=== PATIENT | male | born 1950 | race Caucasian/White ===

== ENCOUNTER 2018-01-07 17:20 | Emergency (ER) | payer MEDICARE, MEDICAID, SELFPAY ==
[2018-01-07 17:31] VITALS: BP 137/82; PULSE 70; RESP 17; TEMP 36.7; O2SAT 95; BMI 22.7
--- NOTE | 2018-01-07 18:39 | ED_ITS ---
HPI - URI/Sore Throat <JOHANN De Santiago - Last Filed: 01/07/18 21:53> General Chief Complaint: Upper Respiratory Symptoms Stated Complaint: SINUS PROBLEMS Time Seen by Provider: 01/07/18 18:18 Source: patient Mode of arrival: ambulatory Limitations: no limitations History of Present Illness HPI Narrative: 67-year-old male here for complaint of having nasal congestion over the last several days. He also reports having some discomfort to the maxillofacial area area he denies having any fevers or chills. He states he has a history of having sinus infections and feels like he is having similar symptoms at this time. He states that his sinus drainage has been thick and purulent. Positive p.o. intake. He denies any other concerns or complaints at this time. MD Complaint: sinus pain Related Data Previous Rx's Medication Instructions Recorded aspirin 81 mg PO QDAY 30 Days #0 10/18/16 doxycycline hyclate 100 mg PO BID #14 tab 01/07/18 Allergies Allergy/AdvReac Type Severity Reaction Status Date / Time No Known Drug Allergies Allergy Verified 01/07/18 17:31 Review of Systems <JOHANN De Santiago - Last Filed: 01/07/18 21:53> Constitutional Denies chills, Denies fever(s), Denies lethargy and Denies weakness Eyes Denies change in vision, Denies eye discharge, Denies irritation and Denies loss of vision ENT Ears, Nose, Mouth, and Throat: Reports sinus pain Cardiovascular Denies chest pain, Denies irregular heart rhythm, Denies lightheadedness, Denies palpitations, Denies dyspnea, Denies dyspnea on exertion and Denies orthopnea Respiratory Denies cough, Denies dyspnea, Denies dyspnea on exertion and Denies wheezing Gastrointestinal Gastrointestinal: Denies abdominal pain, Denies change in bowel habits, Denies diarrhea, Denies nausea and Denies vomiting Genitourinary Denies hematuria, Denies flank pain, Denies urinary incontinence and Denies urinary urgency Musculoskeletal Denies back pain, Denies muscle weakness, Denies numbness and Denies tingling Integumentary/Breasts Denies pruritus, Denies erythema, Denies rash and Denies wounds Neurologic Denies confusion, Denies loss of vision, Denies numbness, Denies tingling and Denies weakness Psychiatric Denies anxiety, Denies confusion, Denies depression, Denies homicidal ideation and Denies suicidal ideation Endocrine Denies palpitations Hematologic/Lymphatic Denies easy bruising Allergic/Immunologic Denies wheezing Exam <JOHANN De Santiago - Last Filed: 01/07/18 21:53> Initial Vital Signs Initial Vital Signs: Vital Signs Temperature 98.0 F 01/07/18 17:31 Pulse Rate 70 01/07/18 17:31 Respiratory Rate 17 01/07/18 17:31 Blood Pressure 137/82 H 01/07/18 17:31 Pulse Oximetry 95 01/07/18 17:31 Const General: cooperative and well developed Nutritional Appearance: well nourished Orientation: alert, awake, oriented x3 and not confused HENMT Head: normal to inspection and normocephalic Nose: external nose normal and nares normal Face and sinus: face symmetric and sinus tenderness Mouth: oral mucosae normal, oropharynx normal and moist mucous membranes Resp Effort & Inspection: normal respiratory effort, able to speak in complete sentences, no respiratory distress and no use of accessory muscles Auscultation: clear to auscultation bilaterally, no rales, no rhonchi and no wheezes Cardio Rate: regular rate Rhythm: regular rhythm Heart Sounds: no click, no gallops, no murmurs and no rubs Pulses: normal peripheral pulses Skin General: no rashes or lesions noted, No jaundice and No petechiae Neuro General: alert, oriented x3, gait normal and no focal motor deficits Speech: speech normal <Dionte Sloan DO - Last Filed: 01/07/18 22:16> Initial Vital Signs Initial Vital Signs: Vital Signs Temperature 98.0 F 01/07/18 17:31 Pulse Rate 70 01/07/18 17:31 Respiratory Rate 17 01/07/18 17:31 Blood Pressure 137/82 H 18 17:31 Pulse Oximetry 95 01/07/18 17:31 Course <JOHANN De Santiago - Last Filed: 01/07/18 21:53> Vital Signs - 8 hr 01/07/18 17:31 01/07/18 19:01 Temperature 98.0 F Pulse Rate 70 64 Respiratory Rate 17 Blood Pressure 137/82 H 111/63 Pulse Oximetry 95 95 <Dionte Sloan DO - Last Filed: 08/15/18 22:16> Vital Signs - 8 hr 01/07/18 17:31 01/07/18 19:01 Temperature 98.0 F Pulse Rate 70 64 Respiratory Rate 17 Blood Pressure 137/82 H 111/63 Pulse Oximetry 95 95 MDM - URI/Sore Throat <JOHANN De Santiago - Last Filed: 01/07/18 21:53> MDM Narrative Medical decision making narrative: Due to history of sinusitis and recurrence of similar symptoms he is prescribed doxycycline. [id number] Tylenol or Motrin as needed for any discomfort. Follow up with primary care provider. Plenty of fluids. Return emergency room for any worsening symptoms. Discharge Plan Departure Patient Disposition: Home, Self-Care Clinical Impression: Sinusitis Discharge Date/Time: 01/07/18 19:01 Interventions: ED Discharge Assessment Last Done: 01/07/18 19:01 Instructions: DI for Sinusitis Activity Restrictions/Additional Instructions: To cover for sinusitis year prescribed an antibiotic called doxycycline use as directed. Plenty of fluids and rest. Hot showers may help with congestion. Follow up with primary care provider. [id number] Tylenol or Motrin as needed for any discomfort. If continued symptoms recommend ENT referral return emergency room for any worsening symptoms. Prescriptions: New doxycycline hyclate 100 mg tablet 100 mg PO BID Qty: 14 RF: 0 No Action aspirin 81 MG tablet,delayed release (DR/EC) 81 mg PO QDAY 30 Days Qty: 0 RF: 0 Referrals: [facility] [Provider Group] <Dionte Sloan DO - Last Filed: 01/07/18 22:16> Cosign ED Attending Dima Attestation: I was available for consultation during this patient's emergency department encounter
[2018-01-07 19:01] VITALS: BP 111/63; PULSE 64; O2SAT 95
== END 2018-01-07 19:01 | disposition home or self-care (01) ==
PROVIDERS: Emergency Provider Nurse Practitioner Family
DX: J01.90 Acute sinusitis, unspecified (principal)
CPT/HCPCS: 99282

== ENCOUNTER 2019-01-04 03:14 | Emergency (ER) | payer MEDICARE, MEDICAID, SELFPAY ==
[2019-01-04 03:27] VITALS: BP 128/74; PULSE 61; RESP 16; TEMP 36.6; O2SAT 96; BMI 22.7
[2019-01-04 03:30] VITALS: PULSE 68
--- NOTE | 2019-01-04 03:30 | ED.EXTPRO ---
HPI - Extremity Problem General Chief complaint: Extremity Problem,Nontraumatic Stated complaint: left foot fungus Time Seen by Provider: 01/04/19 03:30 Source: patient Mode of arrival: ambulatory Limitations: no limitations History of Present Illness HPI Narrative: Patient is a 68-year-old male who presents with rash on his left foot. He states it has been there for the last 3 days he has not had any fever or chills. He has had previously he has been putting Lamisil on it he is not getting any better. He denies any pain. He is not diabetic Related Data Previous Rx's Medication Instructions Recorded aspirin 81 mg PO QDAY 30 Days #0 10/18/16 doxycycline hyclate 100 mg PO BID #14 tab 01/07/18 sulfamethoxazole-trimethoprim 1 tab PO BID #14 tab 01/04/19 [Bactrim DS] Allergies Allergy/AdvReac Type Severity Reaction Status Date / Time No Known Drug Allergies Allergy Verified 01/07/18 17:31 Review of Systems Review of Systems GENERAL: Denies chills,fever HEENT: Denies throat pain RESPIRATORY: Denies dyspnea, cough, wheezing CARDIOVASCULAR: Denies chest pain, palpitations GASTROINTESTINAL: Denies nausea, vomiting MUSCULOSKELETAL: Denies extremity pain, injury SKIN: See HPI NEUROLOGIC: Denies weakness, dizziness, headache, numbness 8 point review of systems is negative except for those stated above and HPI PFSH Medical History TIA (transient ischemic attack) (Acute) Cellulitis of left foot (Acute) Social History Smoking Status: Current every day smoker Social History Smoking Status: Current every day smoker Exam Initial Vital Signs Initial Vital Signs: Vital Signs Temperature 97.9 F 01/04/19 03:27 Pulse Rate 61 01/04/19 03:27 Respiratory Rate 16 01/04/19 03:27 Blood Pressure 128/74 01/04/19 03:27 Pulse Oximetry 96 01/04/19 03:27 GENERAL: Well-appearing, well-nourished and in no acute distress. CARDIOVASCULAR: peripheral pulses in tact, cap refill <2 sec RESPIRATORY: No respiratory distress, speaks in full sentences without difficulty EXTREMITIES: Normal range of motion, no clubbing or edema. Neurovascularly intact NEUROLOGICAL: Cranial nerves II through XII grossly intact. Normal gait and speech. SKIN: Left foot erythema between 3rd and 4th toes. No streaking. It does not expect extend beyond mid foot. He actually is noted have a blister between his 3rd and 4th toe Course Orders Ordered: Discontinued Medications Trimethoprim/Sulfamethoxazole (Bactrim Ds Prepack) 1 bottle MIS SEEINSTR ONE Stop: 01/04/19 03:43 Last Admin: 01/04/19 03:51 Dose: 1 bottle Vital Signs - 8 hr 01/04/19 03:27 01/04/19 03:30 Temperature 97.9 F Pulse Rate 61 Pulse Rate [Left Dorsalis Pedis] 68 Respiratory Rate 16 Blood Pressure 128/74 Pulse Oximetry 96 MDM - Extremity (Nontraumatic) MDM Narrative Medical decision making narrative: The patient's foot has minimal erythema. No streaking. At this time can be treated with patient oral antibiotics. He is not septic for a diabetic. Discharge Plan Departure Patient Disposition: Home Clinical Impression: Cellulitis of left foot Discharge Date/Time: 01/04/19 03:53 Interventions: ED Discharge Assessment Last Done: 01/04/19 03:52 Instructions: DI for Cellulitis -- Adult Activity Restrictions/Additional Instructions: *You have been diagnosed with cellulitis left *What to do: Keep foot clean and dry with soap and water *Continue to take medications as directed Bactrim 1 pill twice a day for 7 days *Follow up with your primary care provider in 2-3 days *Return to ER if you should have increasing redness, increasing pain, fever or any new, worsening or concerning symptoms Prescriptions: New sulfamethoxazole-trimethoprim [Bactrim DS] 800-160 mg tablet 1 tab PO BID Qty: 14 RF: 0 No Action aspirin 81 MG tablet,delayed release (DR/EC) 81 mg PO QDAY 30 Days Qty: 0 RF: 0 doxycycline hyclate 100 mg tablet 100 mg PO BID Qty: 14 RF: 0 Referrals: [facility] [Outside]
[2019-01-04] MEDS: TRIMETH/SULFA 160/800 PREPACK 1 BOTTLE MISC (03:51)
== END 2019-01-04 03:53 | disposition home or self-care (01) ==
LOC: ED 03:58
PROVIDERS: Emergency Provider Emergency Medicine
DX: L03.116 Cellulitis of left lower limb (principal)
CPT/HCPCS: 99282

== ENCOUNTER 2019-11-18 19:22 | Emergency (ER) | payer MEDICARE, MEDICAID, SELFPAY ==
[2019-11-18 19:55] VITALS: BP 130/69; PULSE 74; RESP 18; TEMP 37.1; O2SAT 97
--- NOTE | 2019-11-18 19:59 | ED.EXTPRO ---
HPI - Extremity Problem General Chief complaint: Extremity Problem,Nontraumatic Stated complaint: blister between toes on right foot Time Seen by Provider: 11/18/19 19:58 Source: patient Mode of arrival: Ambulatory Limitations: no limitations History of Present Illness HPI Narrative: 69-year-old male here for evaluation of redness and a blister in between the little toe and 4th toe on his right foot. He states that he noticed some discomfort in the area yesterday but the blister started this morning. Also notice redness in his foot. No specific trauma. No fevers. Does limp somewhat secondary to pain. Related Data Previous Rx's Medication Instructions Recorded aspirin 81 mg PO QDAY 30 Days #0 10/18/16 doxycycline hyclate 100 mg PO BID #14 tab 01/07/18 sulfamethoxazole-trimethoprim 1 tab PO BID #14 tab 01/04/19 [Bactrim DS] doxycycline hyclate 100 mg PO BID 7 Days #14 cap 11/18/19 Allergies Allergy/AdvReac Type Severity Reaction Status Date / Time No Known Drug Allergies Allergy Verified 10/14/19 12:04 Review of Systems Constitutional Constitutional: Denies fever(s) and Denies headache(s) ENT Ears, Nose, Mouth, and Throat: Denies headache(s) Cardiovascular Cardiovascular: Denies chest pain and Denies dyspnea Respiratory Respiratory: Denies dyspnea Musculoskeletal Comments: Right foot pain Integumentary/Breasts Skin/Breast: Reports erythema and Reports rash Comments: Redness and blister to right foot Neurologic Neurologic: Denies burning sensations and Denies headache(s) Patient History Medical History Cellulitis of left foot (Acute) TIA (transient ischemic attack) (Acute) Social History Smoking Status: Current every day smoker Smoking Status: Current every day smoker alcohol intake frequency: 0-2 drinks per day Substance Use Type: marijuana Exam Initial Vital Signs Initial Vital Signs: Vital Signs Temperature 98.8 F 11/18/19 19:55 Pulse Rate 74 11/18/19 19:55 Respiratory Rate 18 11/18/19 19:55 Blood Pressure 130/69 11/18/19 19:55 Pulse Oximetry 97 11/18/19 19:55 Const General: cooperative, comfortable and well developed Limitations: mental status not altered [facility] Head: normal to inspection and normocephalic Cardio Pulses: dorsalis pedis present on the right Skin Other: Patient with a 2 cm x 2 cm blister involving the base of the right little toe and the area in between the little toe and 4th toe of the right foot. There is redness involving the lateral 3 toes and also dorsum of the foot on the right. Neuro Sensory Exam: no sensory deficits noted Extrem Other: Full range of motion right ankle Psych Appearance: grossly normal and well kempt Course Orders Ordered: Discontinued Medications Bacitracin (Bacitracin) 1 applic TOP NOW ONE Stop: 11/18/19 20:10 Last Admin: 11/18/19 20:15 Dose: 1 applic Documented by: MELISSA Doxycycline Hyclate (Vibramycin) 100 mg PO NOW ONE Stop: 11/18/19 20:11 Last Admin: 11/18/19 20:15 Dose: 100 mg Documented by: MELISSA Vital Signs Vital signs: Vital Signs - 8 hr 11/18/19 19:55 11/18/19 21:24 Temperature 98.8 F Pulse Rate 74 61 Respiratory Rate 18 Blood Pressure 130/69 136/76 Pulse Oximetry 97 96 MDM - Extremity (Nontraumatic) MDM Narrative Medical decision making narrative: I unroofed the blister in the area underneath was not purulent. The redness was outlined on his foot. Patient was given 1st dose of antibiotics here in the ER and a prescription for the remainder. Discussed return precautions and follow-up instructions. He expressed understanding and agreement. Discharge Plan Departure Patient Disposition: Home Clinical Impression: Cellulitis and abscess of foot Discharge Date/Time: 11/18/19 21:25 Instructions: DI for Cellulitis -- Adult Activity Restrictions/Additional Instructions: Take the antibiotics as directed. Contact your primary provider for follow-up. You can shower like normal. Return to the emergency department for any new or worsening symptoms Prescriptions: New doxycycline hyclate 100 mg capsule 100 mg PO BID 7 Days Qty: 14 RF: 0 No Action aspirin 81 MG tablet,delayed release (DR/EC) 81 mg PO QDAY 30 Days Qty: 0 RF: 0 doxycycline hyclate 100 mg tablet 100 mg PO BID Qty: 14 RF: 0 sulfamethoxazole-trimethoprim [Bactrim DS] 800-160 mg tablet 1 tab PO BID Qty: 14 RF: 0
[2019-11-18] MEDS: BACITRACIN OINT 0.9 GM PCKT 1 APPLIC TOP (20:15)
[2019-11-18] MEDS: DOXYCYCLINE HYCLATE 100 MG TABLET PO (20:15)
--- NOTE | 2019-11-18 20:33 | PC.NURSE ---
Right foot 5th toe red/swollen with blister on top. Redness extends up on lateral top of foot. Pt denies pain, reports able to walk without issue. Tried epsom salt soak and antibiotic ointment at home.
[2019-11-18 21:24] VITALS: BP 136/76; PULSE 61; O2SAT 96
== END 2019-11-18 21:25 | disposition home or self-care (01) ==
PROVIDERS: Emergency Provider Emergency Medicine
DX: L03.115 Cellulitis of right lower limb (principal)
CPT/HCPCS: 99282

== ENCOUNTER 2020-07-31 13:20 | Inpatient (IN) | payer MEDICARE, MEDICAID, SELFPAY ==
[2020-07-31 13:26] VITALS: PULSE 63; TEMP 36.6; O2SAT 97
[2020-07-31 13:29] VITALS: BP 135/77
--- NOTE | 2020-07-31 13:29 | DI.RAD.S_ITS ---
PROCEDURE: XR HIP W PEL IF DONE LT 2V INDICATIONS: fall, unable to bear weight TECHNIQUE: AP pelvis with lateral view(s) of the left hip(s). COMPARISON: None. FINDINGS: Bones: Minimally displaced fracture involving left femoral neck is seen. Left hip joint osteoarthritic changes are noted. No evidence of avascular necrosis of femoral head. No dislocation. Soft tissues: The visualized bowel gas pattern is normal. No suspicious soft tissue calcifications. IMPRESSION: Minimally displaced fracture through left femoral neck. Left hip joint osteoarthritis. No evidence of avascular necrosis. Dictated by: Enrique Mariano M.D. on 07/31/2020 at 14:00 Approved by: Enrique Mariano M.D. on 07/31/2020 at 14:00
--- NOTE | 2020-07-31 14:28 | ED_ITS ---
HPI - Extremity Injury (Lower) General Chief Complaint: Extremity Injury, Lower Stated Complaint: fell and hurt left hip Time Seen by Provider: 07/31/20 13:26 Source: patient Mode of arrival: Wheelchair Limitations: no limitations History of Present Illness HPI Narrative: 69-year-old male, daily smoker with history of a TIA on aspirin presents with a chief complaint of severe left hip pain after a ground level fal l earlier today. He denies any head neck or back pain. He states he was walking his dog and got caught up in the leash and fell onto his hip. He has severe pain with motion or attempts to ambulate. He denies any numbness, tingling or weakness. He denies any provoking episodes such as chest pain or shortness of breath. He has been NPO since about 1:00 p.m.. complaint: hip injury Onset (ago): hour(s) Injury: Left: hip Related Data Previous Rx's Medication Instructions Recorded aspirin 81 mg PO QDAY 30 Days #0 10/18/16 fluticasone propionate 50 1 spray INTRANASAL BID #15.8 ml 06/21/20 mcg/actuation nasal spray,suspension Allergies Allergy/AdvReac Type Severity Reaction Status Date / Time No Known Drug Allergies Allergy Verified 05/24/20 12:55 Review of Systems Constitutional Constitutional: Denies chills, Denies fatigue, Denies fever(s), Denies frequent falls, Denies lethargy and Denies weakness Eyes Eyes: Denies change in vision, Denies eye discharge, Denies irritation and Denies loss of vision ENT Ears, Nose, Mouth, and Throat: Denies change in voice, Denies dizziness, Denies neck pain, Denies sore throat and Denies throat swelling Cardiovascular Cardiovascular: Denies chest pain, Denies irregular heart rhythm, Denies lightheadedness, Denies palpitations, Denies dyspnea, Denies dyspnea on exertion and Denies orthopnea Respiratory Respiratory: Denies cough, Denies dyspnea, Denies dyspnea on exertion and Denies wheezing Gastrointestinal Gastrointestinal: Denies abdominal pain, Denies change in bowel habits, Denies diarrhea, Denies nausea and Denies vomiting Musculoskeletal Musculoskeletal: Reports arthralgias, Reports limited range of motion, Denies neck pain and Denies numbness Integumentary/Breasts Skin/Breast: Denies pruritus, Denies erythema, Denies rash and Denies wounds Neurologic Neurologic: Denies behavioral changes, Denies confusion, Denies dizziness, Denies frequent falls, Denies loss of vision, Denies numbness and Denies weakness Psychiatric Psychiatric: Denies anxiety, Denies behavioral changes, Denies confusion, Denies depression, Denies homicidal ideation and Denies suicidal ideation Endocrine Endocrine: Denies fatigue, Denies flushing and Denies palpitations Hematologic/Lymphatic Hematologic/Lymphatic: Denies easy bruising Allergic/Immunologic Allergic/Immunologic: Denies urticaria, Denies throat swelling and Denies wheezing Patient History Medical History Allergic rhinitis Cellulitis of left foot Edema History of nicotine dependence Hyperlipidemia Prostate cancer screening TIA (transient ischemic attack) Varicose veins of both legs with edema Venous stasis Social History Smoking Status: Former smoker Smoking Status: Former smoker alcohol intake frequency: 0-2 drinks per day Substance Use Type: marijuana Exam Narrative Exam Narrative: GENERAL: [69] year old patient appears stated age. Well- nourished, well-developed patient, in mild distress. HEAD: Atraumatic. Normocephalic. EYES: Pupils equal round and reactive. Extraocular motions intact. No scleral icterus. No injection or drainage. ENT: Nose without bleeding, purulent drainage. Throat without erythema, tonsillar hypertrophy or exudate. Airway patent. NECK: Trachea midline. Non tender CARDIOVASCULAR: Regular rate and rhythm without murmurs, gallops, or rubs. RESPIRATORY: Clear to auscultation. Breath sounds equal bilaterally. No wheezes, rales, or rhonchi. GASTROINTESTINAL: Abdomen soft, non-tender, nondistended. EXTREMITIES: Severe left hip pain, no shortening, rotation. Closed, isolated and neurovascularly intact BACK: Nontender without deformity or crepitance. No flank tenderness. NEURO: AOx3. SKIN: No rash or erythema of visible areas Initial Vital Signs Initial Vital Signs: Vital Signs Temperature 97.8 F 07/31/20 13:26 Pulse Rate 63 07/31/20 13:26 Pulse Oximetry 97 07/31/20 13:26 Course Orders Ordered: ED Orders 07/31/20 13:29 XR hip w pel if done LT 2V Stat 07/31/20 14:22 Complete Blood Count AUTO DIFF Stat Comprehensive Metabolic Panel Stat 07/31/20 14:30 COVID19 Stat Sodium Chloride (Normal Saline 0.9%) 1,000 mls @ 125 mls/hr IV CONT ALICE Last Admin: 07/31/20 14:31 Dose: 125 mls/hr Documented by: BTONER Discontinued Medications Hydromorphone HCl (Hydromorphone 0.5 Mg Inj) 1 mg IV NOW ONE Stop: 07/31/20 15:53 Consultations Consultation #1: call to Ortho ([place]) keep NPO, unclear if surgery today or tomorrow Consultation #2: call to hospitalist, happy to accept Vital Signs Vital signs: Vital Signs - 8 hr 07/31/20 13:26 07/31/20 13:29 07/31/20 14:54 Temperature 97.8 F Pulse Rate 63 Pulse Rate [Left Dorsalis Pedis] 60 Blood Pressure 135/77 Pulse Oximetry 97 MDM - Extremity Injury (Lower) Lab Data Result diagrams: 07/31/20 14:22 07/31/20 14:22 Labs: Lab Results 07/31/20 07/31/20 07/31/20 Range/Units 14:22 14:22 14:30 WBC 7.8 (4.5-11.0) X10^3/uL RBC 4.67 (4.5-5.9) X10^6/uL Hgb 15.1 (13.5-17.5) g/dL Hct 45.4 (41-53) % MCV 97.4 (80-100) fL MCH 32.4 (26-34) PG MCHC 33.3 (30-36) % RDW 12.5 (11.6-14.8) % Plt Count 201 (150-400) X10^3/uL Neut % (Auto) 63.8 (50-75) % Lymph % (Auto) 24.4 L (25-40) % Mineral % (Auto) 8.8 (3-14) % Eos % (Auto) 1.8 L (2-4) % Baso % (Auto) 1.2 (0-2) % Neut # (Auto) 5000 (2085-0076) /uL Lymph # (Auto) 1900 (2256-2918) /uL Mineral # (Auto) 700 (0-900) /uL Eos # (Auto) 100 (0-450) /uL Baso # (Auto) 100 (0-100) /uL Sodium 136 L (137-145) mmol/L Potassium 4.2 (3.4-5.1) mmol/L Chloride 103 (98-107) mmol/L Carbon Dioxide 28 (22-32) mmol/L BUN 25 H (9-20) mg/dL Creatinine 0.76 (0.66-1.25) mg/dL Estimated GFR > 60.0 (>60) mL/min BUN/Creatinine Ratio 32.9 H (6-22) Glucose 101 (80-110) mg/dL Calcium 9.1 (8.4-10.2) mg/dL Total Bilirubin 0.4 (0.2-1.3) mg/dL AST 34 (17-59) IU/L ALT 33 (<50) IU/L Alkaline Phosphatase 73 (38-126) U/L Total Protein 6.9 (6.3-8.2) g/dL Albumin 4.4 (3.5-5.0) g/dL Globulin 2.5 (1.7-4.1) g/dL Albumin/Globulin Ratio 1.8 (1.0-2.8) SARS-CoV-2 (PCR) Negative (Negative) Imaging Data Hip Xray: Radiologist's Impression: Dionte Bowser 69 M [address] [id number] ReportSigned Patient: Dionte Bowser EMR#: [id number]: [id number]/Sex: 69 / MDate of Service: 07/31/20Loc: EDAccession Number: [id number] Procedure: XR hip w pel if done LT 2V Ordering Provider: Bijan Will D.O. PROCEDURE: XR HIP W PEL IF DONE LT 2V INDICATIONS: fall, unable to bear weight TECHNIQUE: AP pelvis with lateral view(s) of the left hip(s). COMPARISON: None. FINDINGS: Bones: Minimally displaced fracture involving left femoral neck is seen. Left hip joint osteoarthritic changes are noted. No evidence of avascular necrosis of femoral head. No dislocation. Soft tissues: The visualized bowel gas pattern is normal. No suspicious soft tissue calcifications. IMPRESSION: Minimally displaced fracture through left femoral neck. Left hip joint osteoarthritis. No evidence of avascular necrosis. Dictated by: Enrique Mariano M.D. on 07/31/2020 at 14:00 Approved by: Enrique Mariano M.D. on 07/31/2020 at 14:00 Discharge Plan Departure Patient Disposition: Admitted As Inpatient Clinical Impression: Closed fracture of left hip Qualifiers: Encounter type: initial encounter Qualified Code(s): S72.002A - Fracture of unspecified part of neck of left femur, initial encounter for closed fracture Admit Date/Time: 07/31/20 15:35 Admit Provider: Alirio Jackson
[2020-07-31 14:30] LABS: Add Manual Diff / Slide Review NO; Basophils Absolute Auto 100 /uL (0-100); Basophils Percent Auto 1.2 % (0-2); Eosinophils Absolute Auto 100 /uL (0-450); Eosinophils Percent Auto 1.8 % (2-4); Hematocrit 45.4 % (41-53); Hemoglobin 15.1 g/dL (13.5-17.5); Lymphocytes Absolute Auto 1900 /uL (1100-4500); Lymphocytes Percent Auto 24.4 % (25-40); Mean Corpuscular HGB Conc 33.3 % (30-36); Mean Corpuscular Hemoglobin 32.4 PG (26-34); Mean Corpuscular Volume 97.4 fL (80-100); Monocytes Absolute Auto 700 /uL (0-900); Monocytes Percent Auto 8.8 % (3-14); Neutrophils Absolute Auto 5000 /uL (1500-7000); Neutrophils Percent Auto 63.8 % (50-75); Platelet Count 201 X10^3/uL (150-400); Red Blood Cell Count 4.67 X10^6/uL (4.5-5.9); Red Cell Distribution Width 12.5 % (11.6-14.8); White Blood Cell Count 7.8 X10^3/uL (4.5-11.0)
[2020-07-31] MEDS: ONDANSETRON 4 MG/2 ML INJ (14:30)
[2020-07-31] MEDS: HYDROMORPHONE 1 MG INJ (14:30)
[2020-07-31] MEDS: SODIUM CHLORIDE 0.9% 1,000 ML 125 ML IV ×2 (14:31→21:50)
[2020-07-31 14:52] LABS: Alanine Aminotransferase 33 IU/L (<50); Albumin 4.4 g/dL (3.5-5.0); Albumin Globulin Ratio 1.8 (1.0-2.8); Alkaline Phosphatase 73 U/L (38-126); Aspartate Aminotransferase 34 IU/L (17-59); BUN Creatinine Ratio 32.9 (6-22); Bilirubin Total 0.4 mg/dL (0.2-1.3); Blood Urea Nitrogen 25 mg/dL (9-20); Calcium 9.1 mg/dL (8.4-10.2); Carbon Dioxide 28 mmol/L (22-32); Chloride 103 mmol/L (98-107); Estimated Glomerular Filt Rate > 60.0 mL/min (>60); Globulin 2.5 g/dL (1.7-4.1); Glucose 101 mg/dL (80-110); HEMOLYSIS 34 (0-50); Potassium 4.2 mmol/L (3.4-5.1); Sodium 136 mmol/L (137-145); Total Protein 6.9 g/dL (6.3-8.2)
[2020-07-31 14:54] VITALS: PULSE 60
[2020-07-31 15:19] LABS: COVID19 -Nasal RAPID Negative (Negative)
--- NOTE | 2020-07-31 15:49 | PC.NURSE ---
pt requesting pain med, reported to dr. bhagat.
[2020-07-31] MEDS: HYDROMORPHONE 0.5 MG INJ 1 MG IV (15:59)
--- NOTE | 2020-07-31 16:28 | PM.CN ---
History of Present Illness Consult details Date Patient Seen: 07/31/20 Time Patient Seen: 16:28 Chief complaint: GLF, hurt left hip Reason for consult: Left hip fracture Requesting provider: Bijan Will Narrative: The patient is a 69-year-old gentleman who was walking his dog this afternoon when he got tangled in the dog's leash, spun around and fell. He had significant left hip pain and was unable to move well. His family was able to maneuver him into a chair and then he later used a shovel as a crutch to get to the car to come to the emergency room. Radiographs in the emergency room revealed a transverse fracture of the base of the left femoral neck. Orthopedic consultation has been obtained for definitive management of the fracture. The patient had a tuna fish sandwich at 11 in the morning and coffee at 1 in the afternoon. Meds Home Medications and Allergies Home Medications Medication Instructions Recorded Confirmed Type aspirin 81 mg PO QDAY 30 Days #0 10/18/16 05/24/20 Rx fluticasone propionate 50 1 spray INTRANASAL BID #15.8 ml 06/21/20 Rx mcg/actuation nasal spray,suspension Allergies Allergy/AdvReac Type Severity Reaction Status Date / Time No Known Drug Allergies Allergy Verified 05/24/20 12:55 Review of Systems Review of Systems Narrative: He is undergoing evaluation for some sinus drainage but otherwise is in good health. ROS: Yes All systems reviewed with the patient and are negative except as otherwise documented Exam Vital Signs (past 8 hours): - 07/31/20 13:26 07/31/20 13:29 07/31/20 14:54 Temperature 97.8 F Pulse Rate 63 Pulse Rate [Left Dorsalis Pedis] 60 Blood Pressure 135/77 Pulse Oximetry 97 Oxygen Delivery Method Room Air Narrative Exam Narrative: The patient is interviewed while lying comfortably in his emergency room [facility]. The skin over the anticipated site of incision is without lesions. The left leg is very slightly shorter than the right. There is pain on motion of the left leg. Light touch and motion are intact in the left foot. He has a 2+ dorsalis pedis pulse. Objective Labs Result Diagrams: 07/31/20 14:22 07/31/20 14:22 Labs: Laboratory Results - last 24 hr 07/31/20 07/31/20 07/31/20 14:22 14:22 14:30 WBC 7.8 RBC 4.67 Hgb 15.1 Hct 45.4 MCV 97.4 MCH 32.4 MCHC 33.3 RDW 12.5 Plt Count 201 Neut % (Auto) 63.8 Lymph % (Auto) 24.4 L [place] % (Auto) 8.8 Eos % (Auto) 1.8 L Baso % (Auto) 1.2 Neut # (Auto) 5000 Lymph # (Auto) 1900 [place] # (Auto) 700 Eos # (Auto) 100 Baso # (Auto) 100 Sodium 136 L Potassium 4.2 Chloride 103 Carbon Dioxide 28 BUN 25 H Creatinine 0.76 Estimated GFR > 60.0 BUN/Creatinine Ratio 32.9 H Glucose 101 Calcium 9.1 Total Bilirubin 0.4 AST 34 ALT 33 Alkaline Phosphatase 73 Total Protein 6.9 Albumin 4.4 Globulin 2.5 Albumin/Globulin Ratio 1.8 SARS-CoV-2 (PCR) Negative Radiographs reveal a essentially transverse fracture at the lower end of the neck of the left femur. He has a fairly valgus neck shaft angle. Assessment & Plan Assessment & Plan narrative: The patient has a basicervical femoral fracture on the left. This is right at the junction where treatment was screws or with a dynamic hip screw would occur. I have talked him about both percutaneous screw fixation and fixation with a dynamic hip screw. Final decision will be made when he is in traction in the operating room. If significant displacement occurs overnight the patient is aware that he may receive a hemiarthroplasty. Due to the NPO status with the patient having eaten 4 hours ago and had coffee 2 hours ago, we will delay surgery until tomorrow afternoon. He will be allowed to eat until 8 in the morning and then will be NPO except meds. He will be strict bedrest overnight. He has given his signed informed consent after discussion the risks benefits and alternatives. Risks discussed included but were not limited to: Failure to heal, hardware failure, stiffness, infection, nerve damage, deep venous thrombosis, pulmonary embolism, stroke, myocardial infarction, aspiration pneumonia, permanent paralysis and .
--- NOTE | 2020-07-31 17:38 | PM.HP.1 ---
History of Present Illness History of Present Illness Date Patient Seen: 07/31/20 Time Patient Seen: 17:38 Chief complaint: GLF, hurt left hip Narrative: 69 year old male with PMH of asbestosis, prior CVA without residual deficits who presents after a mechanical fall with L hip pain. He states he was walking his dog and tripped on the leash and fell onto his L hip with immediate pain. Prior to the fall he felt no palpitations, chest pain, shortness of breath. He has chronic dyspnea on exertion, stating that he can walk about 100 ft before he gets short of breath. He cannot go up 2 flights of stairs without getting short of breath either. This is been chronic over many years. He has a history of asbestosis, and actually quit smoking about 3 months ago after smoking for 50 years. He had a prior stroke in 2017 with no residual deficits for which he takes an aspirin daily. He denies any recent fevers, chills, abdominal pain, nausea, vomiting, diarrhea. He has had no urinary frequency or dysuria. In the emergency room, the patient was mildly hypertensive, but the remainder of his vital signs were unremarkable. He is saturating at 93% on room air. Imaging revealed an acute Mildly displaced left femoral neck fracture. Orthopedic surgery was consulted, and currently his plan due to the operating room tomorrow for definitive interventions. Laboratory evaluation in the emergency room was unremarkable. COVID-19 testing was negative. Patient History Medical History (Updated 07/31/20 @ 17:44 by Alirio Jackson DO) Allergic rhinitis Asbestosis Cellulitis of left foot CVA (cerebral vascular accident) Edema History of nicotine dependence Hyperlipidemia Prostate cancer screening Varicose veins of both legs with edema Venous stasis Family & Social History Tobacco & Substance use: Smoking Status Former smoker alcohol intake frequency 0-2 drinks per day Substance Use Type marijuana Meds Home Medications and Allergies Home Medications Medication Instructions Recorded Confirmed Type aspirin 81 mg PO QDAY 30 Days #0 10/18/16 05/24/20 Rx fluticasone propionate 50 1 spray INTRANASAL BID #15.8 ml 06/21/20 Rx mcg/actuation nasal spray,suspension Allergies Allergy/AdvReac Type Severity Reaction Status Date / Time No Known Drug Allergies Allergy Verified 05/24/20 12:55 Review of Systems Review of Systems Narrative: All other systems reviewed with the patient and are negative unless otherwise stated. Exam Vital Signs (past 8 hours): - 07/31/20 13:26 07/31/20 13:29 07/31/20 14:54 Temperature 97.8 F Pulse Rate 63 Pulse Rate [Left Dorsalis Pedis] 60 Blood Pressure 135/77 Pulse Oximetry 97 Oxygen Delivery Method Room Air Narrative Exam Narrative: GENERAL APPEARANCE: Well developed, well nourished, in no acute distress. SKIN: Inspection of the skin reveals no rashes, ulcerations or petechiae. HEENT: Normocephalic atraumatic, extraocular muscles are intact, oropharynx is clear and mucous membranes are moist, neck is supple without adenopathy NECK: Supple and symmetric. There was no thyroid enlargement, and no tenderness, or masses were felt. CHEST: Normal AP diameter and normal contour without any kyphoscoliosis. LUNGS: Auscultation of the lungs revealed no wheezes, rhonchi, or rales. CARDIOVASCULAR: There was a regular rate and rhythm without any murmurs, gallops, rubs. Peripheral pulses were 2+ and symmetric. ABDOMEN: Soft and nontender with normal bowel sounds. No ascites was noted. MUSCULOSKELETAL: severe left hip tenderness, current spasming, L leg slightly shortened compared to Right. EXTREMITIES: No cyanosis, clubbing or edema. NEUROLOGIC: Alert and oriented x 3. Normal affect. Non-focal, sensation intact to light touch bilaterally. Objective ECG Impression: pending Imaging XR pelvis: Radiologist's impression: PROCEDURE: XR HIP W PEL IF DONE LT 2V INDICATIONS: fall, unable to bear weight TECHNIQUE: AP pelvis with lateral view(s) of the left hip(s). COMPARISON: None. FINDINGS: Bones: Minimally displaced fracture involving left femoral neck is seen. Left hip joint osteoarthritic changes are noted. No evidence of avascular necrosis of femoral head. No dislocation. Soft tissues: The visualized bowel gas pattern is normal. No suspicious soft tissue calcifications. IMPRESSION: Minimally displaced fracture through left femoral neck. Left hip joint osteoarthritis. No evidence of avascular necrosis. Labs Result Diagrams: 07/31/20 14:22 07/31/20 14:22 Labs: Laboratory Results - last 24 hr 07/31/20 07/31/20 07/31/20 14:22 14:22 14:30 WBC 7.8 RBC 4.67 Hgb 15.1 Hct 45.4 MCV 97.4 MCH 32.4 MCHC 33.3 RDW 12.5 Plt Count 201 Neut % (Auto) 63.8 Lymph % (Auto) 24.4 L [place] % (Auto) 8.8 Eos % (Auto) 1.8 L Baso % (Auto) 1.2 Neut # (Auto) 5000 Lymph # (Auto) 1900 [place] # (Auto) 700 Eos # (Auto) 100 Baso # (Auto) 100 Sodium 136 L Potassium 4.2 Chloride 103 Carbon Dioxide 28 BUN 25 H Creatinine 0.76 Estimated GFR > 60.0 BUN/Creatinine Ratio 32.9 H Glucose 101 Calcium 9.1 Total Bilirubin 0.4 AST 34 ALT 33 Alkaline Phosphatase 73 Total Protein 6.9 Albumin 4.4 Globulin 2.5 Albumin/Globulin Ratio 1.8 SARS-CoV-2 (PCR) Negative Assessment & Plan Assessment & Plan narrative: 69 year old male with PMH of asbestosis, prior CVA without residual deficits who presents after a mechanical fall with L hip pain. Admitted with L femoral neck fracture, plan for operative interventions tomorrow. 1. L femoral neck fracture, acute, present on admission, likely pathologic given mechanism of injury. - continue pain control overnight with tylenol, dilaudid, and valium for spasms. - Dr. Regalado of orthopedic surgery consulted in the ER, appreciate his evaluation and recommendations. Plan for operative interventions tomorrow. - obtain EKG prior to surgery, pulmonary status appears at baseline regarding his asbestosis, no current indications for chest radiograph. - he appears medically optimized prior to surgery, moderate cardiac risk for moderate risk procedure. Will try and obtain inpatient PFTs prior to surgery to assess baseline given chronic dyspnea on exertion. - will obtain EKG prior to surgery. 2. Prior CVA - will hold home asa prior to surgery, resume after. 3. history of asbestosis, - patient appears at baseline respiratory symptom wright. Gets dyspnic on exertion but no acute worsening recently. will obtain CXR prior to surgery given chronic dyspnea on exertion. Code: full surrogate decision maker DVT: hold prior to surgery planned for tomorrow. Dispo: Admitted under inpatient status. According to NSQIP risk calculator, 38% risk for discharge to SNF. Will have to see how he does with therapies after surgery.
--- NOTE | 2020-07-31 17:41 | DI.RAD.S_ITS ---
PROCEDURE: XR CHEST 1V INDICATIONS: chronic dyspnea, pre-op evaluation TECHNIQUE: One view of the chest was acquired. COMPARISON: [facility], , CHEST 2 VIEW, 10/17/2016, 3:52. FINDINGS: Surgical changes and devices: None. Lungs and pleura: Mild pulmonary vascular congestion is seen. Increased interstitial lung markings are noted bilaterally. No definite focal infiltrate. No pleural effusions or pneumothorax. Mediastinum: Mediastinal contours appear normal. Heart size is normal. Bones and chest wall: No suspicious bony lesions. Overlying soft tissues appear unremarkable. IMPRESSION: Mild congestion. No definite focal infiltrate, pleural effusion or pneumothorax. Suggestion of chronic interstitial lung disease. Dictated by: Enrique Mariano M.D. on 07/31/2020 at 20:47 Approved by: Enrique Mariano M.D. on 07/31/2020 at 20:48
[2020-07-31 17:44] VITALS: BP 141/73; PULSE 76; RESP 18; TEMP 37.6; O2SAT 93
[2020-07-31 18:02] VITALS: BMI 23.0
[2020-07-31] MEDS: HYDROMORPHONE 1 MG INJ IV ×2 (18:38→23:24)
[2020-07-31 22:36] VITALS: O2SAT 95
[2020-07-31 23:25] VITALS: BP 103/51; PULSE 79; RESP 16; TEMP 37.8; O2SAT 91
[2020-08-01] VITALS (23 sets, daily range): BP systolic 96–136; BP diastolic 47–79; PULSE 60–82; RESP 10–93; TEMP 36.3–37.7; O2SAT 89–98; BMI 23.0
--- NOTE | 2020-08-01 | DI.RAD.S_ITS ---
PROCEDURE: XR HIP W PEL IF DONE LT 2V INDICATIONS: ORIF LT HIP TECHNIQUE: 2 view(s) of the hip acquired. COMPARISON: [facility], [place], XR HIP W PEL IF DONE LT 2V, 07/31/2020, 13:31. FINDINGS: Intraoperative images demonstrating pin fixation of the left femoral head. There is good anatomic alignment and hardware is intact. IMPRESSION: Intraoperative pin fixation. Dictated by: Melani Garcia M.D. on 08/01/2020 at 18:24 Approved by: Melani Garcia M.D. on 08/01/2020 at 18:25
[2020-08-01 00:11] LABS: Bacteria Urine None Seen; WBC Urine None Seen (0-5/HPF)
[2020-08-01 00:20] LABS: Appearance Urine UA CLEAR; Bilirubin Urine UA NEGATIVE (NEGATIVE); Color Urine UA YELLOW; Glucose Urine UA NEGATIVE (Negative); Ketones Urine UA TRACE (NEGATIVE); Leukocyte Esterase Urine UA NEGATIVE (NEGATIVE); Nitrite Urine UA NEGATIVE (Negative); Occult Blood Urine UA TRACE-INTACT (Negative); Protein Urine UA NEGATIVE (Negative); Urobilinogen Urine UA 0.2 E.U./dL (0.2); pH Urine UA 5.5 (4.5-8.0)
[2020-08-01 00:21] LABS: Culture Indicated Urine Cult Not Indicated; RBC Urine 0-1/HPF (0-5/HPF)
--- NOTE | 2020-08-01 02:14 | PC.NURSE ---
Addendum entered by Liane Lara R.N. 08/01/20 02:18: Earlier temp was 100.1 but rechecked at time of assessment and was 99.1 Original Note: 0046: patient is alert and oriented. Breath sounds CTA with RA sat of 91%; hx of asbestosis but denies SOB. HRR. Denies nausea. BT present and abdomen is soft. Indwelling catheter is patent; urine is clear kane. Declines any repositioning as pain is exacerbated by movement; currently on bedrest due to left LE fx. Was medicated at shift change with Dilaudid and at time of assessment stated pain well controlled at 2/10. SCD's not currently ordered. Plan is for surgery tomorrow and will be NPO after 0800 per order. Fall risk score is high and bed alarm is activated.
[2020-08-01] MEDS: HYDROMORPHONE 1 MG INJ IV ×4 (04:30→15:14)
[2020-08-01] MEDS: SODIUM CHLORIDE 0.9% 1,000 ML 125 ML IV ×2 (06:40→14:27)
--- NOTE | 2020-08-01 08:29 | P.PN_ITS ---
Subjective Subjective Date Patient Seen: 08/01/20 Time Patient Seen: 08:29 Interval history: Denies fever/ chills. Pain under control. Exam Vital Signs (past 8 hours): - 08/01/20 00:49 08/01/20 05:39 Temperature 99.1 F 99.3 F Pulse Rate 73 Respiratory Rate 16 Blood Pressure 124/68 Pulse Oximetry 91 Oxygen Delivery Method Room Air Oxygen Flow Rate 0 Narrative Exam Narrative: 69-year-old male sitting in bedside chair eating breakfast in no apparent distress. Objective Labs Result Diagrams: 07/31/20 14:22 07/31/20 14:22 Labs: Laboratory Results - last 24 hr 07/31/20 07/31/20 07/31/20 14:22 14:22 14:30 WBC 7.8 RBC 4.67 Hgb 15.1 Hct 45.4 MCV 97.4 MCH 32.4 MCHC 33.3 RDW 12.5 Plt Count 201 Neut % (Auto) 63.8 Lymph % (Auto) 24.4 L [place] % (Auto) 8.8 Eos % (Auto) 1.8 L Baso % (Auto) 1.2 Neut # (Auto) 5000 Lymph # (Auto) 1900 [place] # (Auto) 700 Eos # (Auto) 100 Baso # (Auto) 100 Sodium 136 L Potassium 4.2 Chloride 103 Carbon Dioxide 28 BUN 25 H Creatinine 0.76 Estimated GFR > 60.0 BUN/Creatinine Ratio 32.9 H Glucose 101 Calcium 9.1 Total Bilirubin 0.4 AST 34 ALT 33 Alkaline Phosphatase 73 Total Protein 6.9 Albumin 4.4 Globulin 2.5 Albumin/Globulin Ratio 1.8 Urine Color Urine Appearance Urine pH Ur Specific [place] Urine Protein Urine Glucose (UA) Urine Ketones Urine Occult Blood Urine Nitrate Urine Bilirubin Urine Urobilinogen Ur Leukocyte Esterase Urine RBC Urine WBC Urine Bacteria Ur Culture Indicated? SARS-CoV-2 (PCR) Negative 07/31/20 23:35 WBC RBC Hgb Hct MCV MCH MCHC RDW Plt Count Neut % (Auto) Lymph % (Auto) [place] % (Auto) Eos % (Auto) Baso % (Auto) Neut # (Auto) Lymph # (Auto) [place] # (Auto) Eos # (Auto) Baso # (Auto) Sodium Potassium Chloride Carbon Dioxide BUN Creatinine Estimated GFR BUN/Creatinine Ratio Glucose Calcium Total Bilirubin AST ALT Alkaline Phosphatase Total Protein Albumin Globulin Albumin/Globulin Ratio Urine Color Yellow Urine Appearance Clear Urine pH 5.5 Ur Specific [place] 1.020 Urine Protein Negative Urine Glucose (UA) Negative Urine Ketones Trace H Urine Occult Blood Trace-intact Urine Nitrate Negative Urine Bilirubin Negative Urine Urobilinogen 0.2 Ur Leukocyte Esterase Negative Urine RBC 0-1/hpf Urine WBC None seen Urine Bacteria None seen Ur Culture Indicated? Cult not indicated SARS-CoV-2 (PCR) PFSH Medical History Allergic rhinitis Asbestosis Cellulitis of left foot CVA (cerebral vascular accident) Edema History of nicotine dependence Hyperlipidemia Prostate cancer screening Varicose veins of both legs with edema Venous stasis Social History household members: other Smoking Status: Former smoker Assessment & Plan Assessment & Plan narrative: MRI scheduled for 10:30 a.m. 08/01/2020 Quality VTE Deep Vein Thrombosis/Pulmonary Embolism Present on Admission: No
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
--- NOTE | 2020-08-01 11:38 | PM.PN.1 ---
Exam Vital Signs (past 8 hours): - 08/01/20 05:39 08/01/20 08:43 Temperature 99.3 F 99.3 F Pulse Rate 73 76 Respiratory Rate 16 17 Blood Pressure 124/68 124/76 Pulse Oximetry 91 94 Oxygen Delivery Method Room Air Oxygen Flow Rate 0 Narrative Exam Narrative: GENERAL APPEARANCE: Well developed, well nourished, in no acute distress. SKIN: Inspection of the skin reveals no rashes, ulcerations or petechiae. HEENT: Normocephalic atraumatic, extraocular muscles are intact, oropharynx is clear and mucous membranes are moist, neck is supple without adenopathy NECK: Supple and symmetric. There was no thyroid enlargement, and no tenderness, or masses were felt. CHEST: Normal AP diameter and normal contour without any kyphoscoliosis. LUNGS: Auscultation of the lungs revealed no wheezes, rhonchi, or rales. CARDIOVASCULAR: There was a regular rate and rhythm without any murmurs, gallops, rubs. Peripheral pulses were 2+ and symmetric. ABDOMEN: Soft and nontender with normal bowel sounds. No ascites was noted. MUSCULOSKELETAL: severe left hip tenderness, L leg slightly shortened compared to Right. EXTREMITIES: No cyanosis, clubbing or edema. NEUROLOGIC: Alert and oriented x 3. Normal affect. Non-focal, sensation intact to light touch bilaterally. Objective Labs Result Diagrams: 07/31/20 14:22 07/31/20 14:22 Labs: Laboratory Results - last 24 hr 07/31/20 07/31/20 07/31/20 14:22 14:22 14:30 WBC 7.8 RBC 4.67 Hgb 15.1 Hct 45.4 MCV 97.4 MCH 32.4 MCHC 33.3 RDW 12.5 Plt Count 201 Neut % (Auto) 63.8 Lymph % (Auto) 24.[address] [place] % (Auto) 8.8 Eos % (Auto) 1.8 L Baso % (Auto) 1.2 Neut # (Auto) 5000 Lymph # (Auto) 1900 [place] # (Auto) 700 Eos # (Auto) 100 Baso # (Auto) 100 Sodium 136 L Potassium 4.2 Chloride 103 Carbon Dioxide 28 BUN 25 H Creatinine 0.76 Estimated GFR > 60.0 BUN/Creatinine Ratio 32.9 H Glucose 101 Calcium 9.1 Total Bilirubin 0.4 AST 34 ALT 33 Alkaline Phosphatase 73 Total Protein 6.9 Albumin 4.4 Globulin 2.5 Albumin/Globulin Ratio 1.8 Urine Color Urine Appearance Urine pH Ur Specific [place] Urine Protein Urine Glucose (UA) Urine Ketones Urine Occult Blood Urine Nitrate Urine Bilirubin Urine Urobilinogen Ur Leukocyte Esterase Urine RBC Urine WBC Urine Bacteria Ur Culture Indicated? SARS-CoV-2 (PCR) Negative 07/31/20 23:35 WBC RBC Hgb Hct MCV MCH MCHC RDW Plt Count Neut % (Auto) Lymph % (Auto) [place] % (Auto) Eos % (Auto) Baso % (Auto) Neut # (Auto) Lymph # (Auto) [place] # (Auto) Eos # (Auto) Baso # (Auto) Sodium Potassium Chloride Carbon Dioxide BUN Creatinine Estimated GFR BUN/Creatinine Ratio Glucose Calcium Total Bilirubin AST ALT Alkaline Phosphatase Total Protein Albumin Globulin Albumin/Globulin Ratio Urine Color Yellow Urine Appearance Clear Urine pH 5.5 Ur Specific [place] 1.020 Urine Protein Negative Urine Glucose (UA) Negative Urine Ketones Trace H Urine Occult Blood Trace-intact Urine Nitrate Negative Urine Bilirubin Negative Urine Urobilinogen 0.2 Ur Leukocyte Esterase Negative Urine RBC 0-1/hpf Urine WBC None seen Urine Bacteria None seen Ur Culture Indicated? Cult not indicated SARS-CoV-2 (PCR) PFSH Medical History Allergic rhinitis Asbestosis Cellulitis of left foot CVA (cerebral vascular accident) Edema History of nicotine dependence Hyperlipidemia Prostate cancer screening Varicose veins of both legs with edema Venous stasis Social History household members: other Smoking Status: Former smoker Assessment & Plan Assessment & Plan narrative: 69 year old male with PMH of asbestosis, prior CVA without residual deficits who presents after a mechanical fall with L hip pain. Admitted with L femoral neck fracture, plan for operative interventions later today 1. L femoral neck fracture, acute, present on admission, likely pathologic given mechanism of injury. - continue pain control today with tylenol, dilaudid, and valium for spasms. - Dr. Regalado of orthopedic surgery consulted in the ER, appreciate his evaluation and recommendations. Plan for operative interventions later today. - obtain EKG prior to surgery, pulmonary status appears at baseline regarding his asbestosis. CXR with no acute disease. - he appears medically optimized prior to surgery, moderate cardiac risk for moderate risk procedure. - EKG Normal sinus rhythm 2. Prior CVA - will hold home asa prior to surgery, resume after. 3. history of asbestosis, - patient appears at baseline respiratory symptom wright. Gets dyspnic on exertion but no acute worsening recently. CXR with no acute findings. PFTs done at bedside somewhat limited with pain issues last evening, did not show obstructive pattern but showed a restrictive lung pattern. FEV1/FVC is borderline at 73% of predicted. FVC 51% of predicted. Code: full surrogate decision maker DVT: hold prior to surgery planned. Resume per orthopedic service. Dispo: Admitted under inpatient status. According to NSQIP risk calculator, 38% risk for discharge to SNF. Will have to see how he does with therapies. Quality VTE Deep Vein Thrombosis/Pulmonary Embolism Present on Admission: No
--- NOTE | 2020-08-01 15:12 | CM.DPNOTE ---
Faxed FS & H&P to [facility] and [facility] per Pauline on 08/01/20. Received fax confirmation. Mita Garza CM Asst.
--- NOTE | 2020-08-01 15:27 | CM.DPNOTE ---
Received a call from JOSI Doll, she said she received my fax (H&P & FS), and for us to fax her any other new information (surgery notes, etc.) when they are ready. She said they are reviewing the information and they have open beds. I relayed this message to Val. Mita Garza CM Asst.
[2020-08-01] MEDS: LACTATED RINGERS 1,000 ML 42 ML IV (16:10)
--- NOTE | 2020-08-01 16:26 | PM.PREOP ---
Pre-operative Note COVID-19 COVID-19 status: Negative Result date/Date tested (Pos, Neg/Pending): 07/31/20 Interval Note History & Physical reviewed/Exam performed by Physician: Yes Changes to H&P: No
[2020-08-01] MEDS: ALBUTEROL/IPRATROPIUM 3 ML AMPUL INH (16:45)
[2020-08-01] MEDS: CEFAZOLIN VIAL 1 GM in SODIUM CHLORIDE 0.9% 100 ML 200 ML IV (17:25)
--- NOTE | 2020-08-01 17:39 | SUR.OPER ---
Supine on padded [place] table with operative leg secured in padded positioning boot and suspended in positioning spar, operative leg in traction per surgeon. Non-operative leg on padded well leg renee, secrued with with velcor strap over blanket. Head on one pillow. Arm on non-operative side secured on padded armboard <90 degrees abduction. Arm on operative side padded and resting across chest then secured with tape over sheet. Padded perineal post in place per surgeon.
--- NOTE | 2020-08-01 18:15 | PM.OP.1 ---
Operative Date/Time/Diagnoses Date of procedure: 08/01/20 Time of procedure: 18:15 Pre-op diagnosis: Left femoral neck fracture Post-op diagnosis: same Procedure & Clinicians Procedure: Percutaneous screw fixation of left femoral neck fracture Same procedure as scheduled: Yes Indications: The patient is a 69-year-old gentleman who fell while walking his dog yesterday sustaining the above-noted fracture. He has agreed to surgery after discussion the risks benefits and alternatives. Risks discussed included but not limited to failure of hardware, avascular necrosis, stiffness, infection, nerve damage, deep venous thrombosis, pulmonary embolism, stroke, myocardial infarction, permanent paralysis and . Surgeon: Félix Regalado Click Yes if Unassisted: Yes Anesthesia Type: General Operative Notes Findings: Satisfactory alignment of femoral neck fracture Closure Type: primary Specimen(s): none sent Prosthetic devices, grafts, tissues, transplants, or devices: Three 7.3 mm Synthes cannulated hip screws. Applied: catheter and implant(s) Estimated Blood Loss (mL): 50 Blood products transfused: none Procedure in detail: The patient was seen in the preoperative area, where he identified the left hip as the operative site and this was marked with my initials. He received preoperative antibiotics and was taken to the operating room where a general anesthetic was induced, he was then transferred to the fracture table with the left leg in the traction what leg renee and the right leg in the well leg renee. All pressure points were well-padded. Light traction was placed on the left leg and the leg was internally rotated so the femoral neck was parallel with the floor. The position of the fracture was verified as being satisfactory in the AP and lateral views on fluoroscopy. A time buyer-out was performed. The lateral aspect of the left leg was prepared with ChloraPrep in the usual fashion and draped with a vertical adherent drape. The axis of the femoral neck was marked on the anterior thigh with a radiopaque pin and a skin marker. Three pins were then placed in an inverted triangle pattern with 2 pins superior and 1 pin inferior along the very edge of the femoral neck. The pins were placed as parallel as possible in the AP and lateral view. They were placed in the subchondral bone of the femoral head. They were then measured and 5 mm subtracted from each pin length, this resulted in three 85 mm screws being placed. The positions of the screws were verified is acceptable in the AP and lateral views and at 15 degree increments between AP and lateral to confirm there has been no perforation of the femoral head. The percutaneous wounds were then irrigated and closed with a 4-0 Monocryl and Steri-Strips. 4x4s and a Tegaderm were applied as a dressing. Patient was then taken off the fracture table and transferred to his hospital bed where he was allowed to awaken from his anesthesia. He was transferred to the recovery room in good condition having tolerated procedure well. Complications: none Post-operative Condition: stable Disposition: PACU Plan for aftercare: The patient will be allowed to weight bear as tolerated. He will be discharged when he is safe for his home environment.
[2020-08-01] MEDS: ONDANSETRON 4 MG/2 ML INJ IV (18:39)
[2020-08-01] MEDS: OXYCODONE IR 5 MG TABLET PO (18:39)
[2020-08-01] MEDS: LACTATED RINGERS 1,000 ML 125 ML IV (19:36)
[2020-08-01] MEDS: ACETAMINOPHEN 325 MG TABLET 975 MG PO (21:27)
[2020-08-01] MEDS: ASPIRIN EC 81 MG TABLET PO (21:28)
[2020-08-01] MEDS: DOCUSATE 100 MG CAPSULE PO (21:28)
--- NOTE | 2020-08-02 02:03 | PC.NURSE ---
Addendum entered by Liane Lara R.N. 08/02/20 04:00: States he is having minimal left leg pain but bilateral elbows are tender and rates severity as 6/10; did not want to take oxycodone and requested only Tylenol be given. Original Note: patient seen and assessed at 2332. Alert and oriented. Breath sounds diminished but CTA. At shift change was on oxygen at 2L/min per NC with sat of 98% so decreased to 1L/min with sat of 93% after which patient removed oxygen and requested not to wear. Is on continuous oximetry so is being monitored for any desat and is currently asleep and sat is 96%. HRR. Denies nausea. BT present and states he has passed flatus since returning from surgery. Indwelling catheter is patent. Able to move himself in bed. Gait not assessed as has not yet been out of bed. CMS is intact. Dressing to left lateral upper leg is CDI. 2+ bilateral LE edema which patient states is chronic. Wearing bilateral calf SCD's. Denies pain. Fall risk score is high and bed alarm is activated.
[2020-08-02] MEDS: LACTATED RINGERS 1,000 ML 125 ML IV (03:46)
[2020-08-02] MEDS: ACETAMINOPHEN 325 MG TABLET 650 MG PO (03:52)
[2020-08-02 03:55] VITALS: BP 127/76; PULSE 62; RESP 16; TEMP 36.6; O2SAT 95
[2020-08-02 05:38] LABS: Add Manual Diff / Slide Review NO; Basophils Absolute Auto 0 /uL (0-100); Basophils Percent Auto 0.2 % (0-2); Eosinophils Absolute Auto 0 /uL (0-450); Eosinophils Percent Auto 0.2 % (2-4); Hematocrit 38.5 % (41-53); Hemoglobin 13.3 g/dL (13.5-17.5); Lymphocytes Absolute Auto 600 /uL (1100-4500); Lymphocytes Percent Auto 8.1 % (25-40); Mean Corpuscular HGB Conc 34.5 % (30-36); Mean Corpuscular Hemoglobin 33.3 PG (26-34); Mean Corpuscular Volume 96.3 fL (80-100); Monocytes Absolute Auto 500 /uL (0-900); Monocytes Percent Auto 6.6 % (3-14); Neutrophils Absolute Auto 6000 /uL (1500-7000); Neutrophils Percent Auto 84.9 % (50-75); Platelet Count 143 X10^3/uL (150-400); Red Cell Distribution Width 12.1 % (11.6-14.8); White Blood Cell Count 7.1 X10^3/uL (4.5-11.0)
[2020-08-02 05:45] LABS: BUN Creatinine Ratio 25.8 (6-22); Blood Urea Nitrogen 17 mg/dL (9-20); Calcium 8.3 mg/dL (8.4-10.2); Carbon Dioxide 26 mmol/L (22-32); Chloride 107 mmol/L (98-107); Estimated Glomerular Filt Rate > 60.0 mL/min (>60); Glucose 142 mg/dL (80-110); HEMOLYSIS < 15 (0-50); Potassium 4.5 mmol/L (3.4-5.1); Sodium 135 mmol/L (137-145)
[2020-08-02] MEDS: OXYCODONE IR 10 MG TABLET PO (06:41)
[2020-08-02 07:20] VITALS: BP 120/65; PULSE 60; RESP 18; TEMP 36.6; O2SAT 94
--- NOTE | 2020-08-02 07:20 | P.PN_ITS ---
Subjective Subjective Date Patient Seen: 08/02/20 Time Patient Seen: 07:20 Exam Vital Signs (past 8 hours): - 08/01/20 23:46 08/02/20 03:55 Temperature 97.4 F L 97.8 F Pulse Rate 65 62 Respiratory Rate 16 16 Blood Pressure 112/59 L 127/76 Pulse Oximetry 93 95 Oxygen Delivery Method Room Air Oxygen Flow Rate 0 Objective Labs Result Diagrams: 08/02/20 05:04 08/02/20 05:04 Labs: Laboratory Results - last 24 hr 08/02/20 08/02/20 05:04 05:04 WBC 7.1 RBC 4.00 L Hgb 13.3 L Hct 38.5 L MCV 96.3 MCH 33.3 MCHC 34.5 RDW 12.1 Plt Count 143 L Neut % (Auto) 84.9 H D Lymph % (Auto) 8.1 L [place] % (Auto) 6.6 Eos % (Auto) 0.2 L Baso % (Auto) 0.2 Neut # (Auto) 6000 Lymph # (Auto) 600 L [place] # (Auto) 500 Eos # (Auto) 0 Baso # (Auto) 0 Sodium 135 L Potassium 4.5 Chloride 107 Carbon Dioxide 26 BUN 17 Creatinine 0.66 Estimated GFR > 60.0 BUN/Creatinine Ratio 25.8 H Glucose 142 H Calcium 8.3 L PFSH Medical History Allergic rhinitis Asbestosis Cellulitis of left foot CVA (cerebral vascular accident) Edema History of nicotine dependence Hyperlipidemia Prostate cancer screening Varicose veins of both legs with edema Venous stasis Social History household members: significant other and other Smoking Status: Former smoker alcohol intake: former Assessment & Plan Post-op Postoperative Procedures: Procedures Operation Date: 08/01/20 15:45 Actual Procedures Side Surgeon p ORIF Hip/Cannulated Screws vs DHS Left Félix Regalado MD Quality VTE Deep Vein Thrombosis/Pulmonary Embolism Present on Admission: No
[2020-08-02] MEDS: ASPIRIN EC 81 MG TABLET PO (08:17)
[2020-08-02] MEDS: ACETAMINOPHEN 325 MG TABLET 975 MG PO ×2 (08:17→14:15)
--- NOTE | 2020-08-02 08:20 | P.DS_ITS ---
History of Present Illness History of Present Illness Date Patient Seen: 08/02/20 Time Patient Seen: 08: Date of Onset of Symptoms: 07/31/20 Chief complaint: GLF, hurt left hip Narrative: The history and physical is contained in the chart previously completed note. Please refer to that note for this information. Discharge Providers Provider Date of admission: 07/31/20 15:35 Discharge Date: 08/02/20 Primary care physician: Abilio Chase MD Consults: 07/31/20 18:30 Consult to Orthopedic Surgery Routine Comment: Consulting Provider: Félix Regalado Reason for consultation: hip fracture Has provider been notified: Yes 08/01/20 19:10 Consult to Discharge Planning Routine Comment: Consult to Physical Therapy Evaluate & Treat Comment: Physician Instructions: Evaluate and Treat Consult to Respiratory Therapy Evaluate & Treat Comment: Physician Instructions: Evaluate and treat 08/01/20 19:30 Consult to Respiratory Therapy Evaluate & Treat Comment: Asbestosis; s/p ORIF hip fracture with gen anesthe Physician Instructions: Evaluate and treat Discharge provider: Félix Regalado MD Summary Hospital Course Discharge Diagnosis: 1. Left femoral neck fracture 2. Post hemorrhagic anemia Hospital Course: The patient was admitted to the hospital on July 31, 2020 on the day that he fell. His NPO status was not sufficient to allow surgery that evening so surgery was postponed to the following day on August 01. On August 01 he underwent a closed reduction and percutaneous pinning of his left femoral neck fracture. He tolerated this well. On the morning of postoperative day 1 he appears medically stable and will likely be ready for discharge later today. Status at Discharge Cognitive/behavioral status at discharge: oriented Functional status at discharge: uses cane/walker Overall status at discharge: patient is progressing back to baseline Time Spent with Patient Time spent: Less than 30 minutes Exam Vital Signs (past 8 hours): - 08/02/20 03:55 08/02/20 07:20 Temperature 97.8 F 97.9 F Pulse Rate 62 60 Respiratory Rate 16 18 Blood Pressure 127/76 120/65 Pulse Oximetry 95 94 Oxygen Delivery Method Room Air Oxygen Flow Rate 0 Narrative Exam Narrative: Left hip wound is dressed with no drainage on the bandage. Light touch and motion are intact in the left lower extremity. Calf is soft. There is no pain with logroll of the left femur. Objective Labs Result Diagrams: 08/02/20 05:04 08/02/20 05:04 Labs: Laboratory Results - last 24 hr 08/02/20 08/02/20 05:04 05:04 WBC 7.1 RBC 4.00 L Hgb 13.3 L Hct 38.5 L MCV 96.3 MCH 33.3 MCHC 34.5 RDW 12.1 Plt Count 143 L Neut % (Auto) 84.9 H D Lymph % (Auto) 8.1 L [place] % (Auto) 6.6 Eos % (Auto) 0.2 L Baso % (Auto) 0.2 Neut # (Auto) 6000 Lymph # (Auto) 600 L [place] # (Auto) 500 Eos # (Auto) 0 Baso # (Auto) 0 Sodium 135 L Potassium 4.5 Chloride 107 Carbon Dioxide 26 BUN 17 Creatinine 0.66 Estimated GFR > 60.0 BUN/Creatinine Ratio 25.8 H Glucose 142 H Calcium 8.3 L PFSH Medical History Allergic rhinitis Asbestosis Cellulitis of left foot CVA (cerebral vascular accident) Edema History of nicotine dependence Hyperlipidemia Prostate cancer screening Varicose veins of both legs with edema Venous stasis Social History household members: significant other and other Smoking Status: Former smoker alcohol intake: former Discharge Assessment & Plan Assessment and Plan Assessment: Stable postop day 1 status post closed reduction and percutaneous pinning of the left hip femoral neck fracture. He has a mild post hemorrhagic anemia from his hip fracture. He appears medically stable. He is relatively robust and has good upper body strength. There is a good likelihood that he will be ready for discharge after physical therapy today. Plan of Treatment: Physical therapy today with possible discharge this afternoon. Follow up in my office in 10-14 days. Prescriptions will be filed with his pharmacy for postoperative pain relief. I would recommend low-dose aspirin twice a day for DVT prophylaxis. Discharge Plan Discharge Plan Patient Disposition: Home Discharge orders & Medications Prescriptions: New acetaminophen 325 mg Tablet 975 mg PO TID 30 Days Qty: 270 RF: 0 aspirin 81 mg Tablet,Delayed Release (Dr/Ec) 81 mg PO BID 42 Days Qty: 84 RF: 0 oxycodone 5 mg Tablet 5 mg PO Q4H PRN (Reason: Pain, Moderate (4-6)) Qty: 30 RF: 0 Continued fluticasone propionate 50 mcg/actuation Campbell,Suspension 1 spray INTRANASAL DAILY RF: 0 fluticasone propionate [Allergy Relief (fluticasone)] 50 mcg/actuation spray,suspension 1 spray intranasal BEDTIME RF: 0 Discontinued aspirin 81 MG tablet,delayed release (DR/EC) 81 mg PO QDAY 30 Days Qty: 0 RF: 0 Follow up/Referrals: Abilio Chase MD [Primary Care Provider] - Félix Regalado MD [Physician] - 2 Weeks Discharge Health Status Multidrug resistant organism: No MDRO Diet/Activity/Treatments Diet: Diet as Tolerated and Regular Activity: You may bear weight as tolerated on your left leg. Cold/Heat Therapy: Apply ice for 15 minutes every hour as needed to the left hip for pain control. Skin/Wound/Dressing Care Report to your healthcare provider any signs of infection, such as:: chills, fever, night sweats, increased pain, unusual drainage and unusual redness Dressing: You may remove the dressing 3 days after surgery and shower normally. Leave the tapes that are on your skin in place until they fall off on their own. Visit Report/Discharge Packet Instructions: DI for Open Reduction Internal Fixation Surgery, DI for Prescription Opioid Use Stand Alone Forms: Surgery Discharge Discharge Data Primary Care Provider: Abilio Chase Quality VTE Deep Vein Thrombosis/Pulmonary Embolism Present on Admission: No
[2020-08-02 09:22] VITALS: O2SAT 95
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
[2020-08-02 11:05] VITALS: BP 123/74; PULSE 72; RESP 14; TEMP 37.2; O2SAT 93
--- NOTE | 2020-08-02 11:11 | CM.DPC ---
DCP Discharge Home Per Ortho MD, pt tolerated surgery yesterday well and stable for d/c home today after PT and no identified barriers to discharge. Per PT, pt did well with ambulation and mobility and recommending safe d/c home today with cane and SW placed cane for home use orders. Per RN, no concerns at this time. Plan: Patient to d/c home via friend POV and cane issued by therapy and no further SW needs at this time. TERELL Simms
[2020-08-02] MEDS: OXYCODONE IR 5 MG TABLET PO (14:17)
--- NOTE | 2020-08-02 14:30 | PT.IPTN ---
Current Diagnoses Pathological fracture, left femur, initial encounter for fracture (07/31/20) Surgery Performed Operation Date: 08/01/20 15:45 Actual Procedures p ORIF Hip/Cannulated Screws vs DHS(Left) - Félix Regalado MD Physical Therapy Treatment Note M2 PT-IP Current Condition Start: 08/02/20 12:00 Freq: NEEDED Status: Active Protocol: Document 08/02/20 12:00 [facility] (Rec: 08/02/20 12:13 [facility] [id number]) Physical Therapy Current Condition Current Condition Evaluation Date 08/02/20 Treatment Diagnosis GLF w/L femur fracture s/p screw fixation Weight Bearing Status Weight Bearing Status Weight Bear as Tolerated M3 PT-IP Subjective Start: 08/02/20 12:00 Freq: NEEDED Status: Active Protocol: Document 08/02/20 14:11 SP (Rec: 08/02/20 15:07 SP [id number]) Subjective Physical Therapy Visit Type Type Treatment Note Visit Start Time 14:11 Visit Stop Time 14:30 Total Visit Minutes 19 Number of DOZER OPERATOR Visits 1 Physical Therapy Visit Comments Patient Comments Pt willing to work with therapy. Patient Goals Leave this PM with his girlfriend to assist him at home. Therapy Pain Assessment Pain When Pain Assessed During Mobility Pain Present Pain Present Pain Reported Location Left Hip Intensity 5 Scale Used Numeric (0 - 10) Description With Movement Pain Behaviors Facial Grimacing Pain Management Techniques Re-positioning,Timing of Activity with Medications M4 PT-IP Mobility and Gait Start: 08/02/20 12:00 Freq: NEEDED Status: Active Protocol: Document 08/02/20 14:11 SP (Rec: 08/02/20 15:07 SP [id number]) PT-Transfer Assessment Sit to and From Stand Sit to and from Stand Standby Assistance,Use of Upper Extremities Equipment Transfer Assistive Device Gait Belt,Axillary Crutches Orthotic/Prosthetic Devices or Brace: No Transfers Transfer Destination Chair,Toilet Transfer Technique ambulated using axillary crutches Transfer Ability Level of Assist Contact Guard Assistance,Use of Upper Extremities Comments Mobility Comments Pt was upright seated in reclined when arrived. Sit> stand using BUE then provided axillary crutches, CGA. Ambulated approx 150 ft using B crutches into hallway CGA, provided educaation for decrease conversation and allowance of standing rest breaks (took 2 brief breaks) to allow proper breath control due to noted + SOB, recovery quickly seconds maintained SaO2 mid 90s. Pt returned to room static standing front chair with good balance taking pain meds, requested during walk from nurse, stable with head turns CGA no AD WBAT 50% BLE demonstrated. Pt proceeded to ambulate to bathroom approx 8 ft using crutches SBA , Stand>sit with use of grab bar sBA, completed self hygiene in standing with support of grab bar, ambulated to sink approx 15 ft, static standing w/ crutches under arms light contact on sink for self balance, ambulated back to chair 4 ft sBA and educated placing B crutches in on 1 hand and slow descent to chair with other hand on chair arm rest, stable sBA. Pt had call light and all needs in reach before left. Pt stated will be able to get ride to outpt PT and will call and set up with a PT he knows. Pt is ok to return home with girlfriend to assist him when medically cleared. Gait Assessment Gait Gait Assistance Required: Standby Assistance,Contact Guard Assist Distance (Feet) 158 Able to Maintain Weight Bearing Status Yes During Gait Assistive Devices Assistive Device Gait Belt,Axillary Crutches Orthotic/Prosthetic Devices or Brace: No Gait Deviations General Gait Pattern Decreased Stride Length,Flexed Trunk Factors Limiting Gait Function Factors Limiting Gait Function Decreased Activity Tolerance, Decreased Strength,Limited Range of Motion,Pain Comments Gait Comments Cued pt for L LE knee flexion and ankle DF during swing through phase to decrease hip hike compensations toward end of gait distance using axillary crutches CGA> sBA. Stair Climbing Assessment Comments Stair Climbing Comments Completed in am, not need further assessment. PT-Balance Assessment Sitting Balance and Reactions Static Sitting Balance Ability Normal Dynamic Sitting Balance Ability Normal Standing Balance and Reactions Static Standing Balance Ability Good Dynamic Standing Balance Ability Good Device Used crutches Comments Other Balance Tests/Deviations/Treatment Static standing taking meds at : front chair including head turns, no AD, BLE WB evenly, CGA, stable, approx 1.5 minutes after returned from walk and no sit rest. M5 PT-IP Objective Assessments Start: 08/02/20 12:00 Freq: NEEDED Status: Active Protocol: Document 08/02/20 12:00 [facility] (Rec: 08/02/20 12:13 [facility] [id number]) Orientation Orientation/Cognition Level of Alertness Alert Language Function Ability No Deficits Noted Safety Awareness Understands Safety Issues Memory Description No Deficits Noted Strength Lower Extremity Strength Assessment Left Impaired M6 PT-IP Treatment Start: 08/02/20 12:00 Freq: NEEDED Status: Active Protocol: Document 08/02/20 14:11 SP (Rec: 08/02/20 15:07 SP [id number]) Physical Therapy Treatment Education Education Provided Weight Bearing Status,Safety Other Treatments Other Treatment Performed DOZER OPERATOR discussed proper sequencing getting in/out tub. Pt stated has a bench in his RV shower so can sit on toilet lift legs over side of tub and mobility to bench in tub due to being so close and handle to self support transfer. M7 PT-IP Assessment and Plan Start: 08/02/20 12:00 Freq: NEEDED Status: Active Protocol: Document 08/02/20 14:11 SP (Rec: 08/02/20 15:07 SP [id number]) PT Summary Assessment and Plan Potential Rehabilitation Potential Good Status of Condition at Evaluation Evolving Summary Impairments Pain,ROM,Strength,Balance,Bed Mobility,Transfers,Gait, Activity Tolerance Progress Towards Goals Progressing Toward Goals,Slow Progress due to Pain,Slow Progress due to Activity Tolerance Assessment Summary Pt required CG> SBA during all mobility, recalled 3/3 and maintained precautions during mobility using B axillary crutches. DOZER OPERATOR dispensed B axillary crutches, including fitting for proper height per supervising PT request for home use, did have, patient in agreement. Pt ambulated further distance in hallway. Pt is ok to return home with girlfriend to assist him when medically stable. Recommending outpt PT to improve strength, ROM toward PLOF, pt stated knows a PT wants to see and will call and set up an appt. Goals Bed Mobility Goal Independent Transfer Goal Independent Gait Goal Independent Gait Distance 110ft Other Goals up/down 2 stairs w/crutches SBA Days to Meet Goals 4 Frequency of Treatment Frequency Of Treatment Twice a Day Treatment Plan Physical Therapy Treatment Plan Bed Mobility Training,Transfer Training,Gait Training, Therapeutic Exercise,Balance Retraining,Post Op Education, Discharge Planning, Neuromuscular Re-ed Other Recommendations and Next Treatment edu for in/out of tub, review Focus stairs, gait training w/ crutches Recommendations To Nursing Amount of Assist Needed 1 Person Assist Discharge Recommendations PT Discharge Recommendations Home with Assistance, Outpatient PT Equipment Needed for Home Before crutches- dispensed. Discharge Transportation Needs at Discharge Private Vehicle
--- NOTE | 2020-08-02 14:30 | PT.IPTN ---
Current Diagnoses Pathological fracture, left femur, initial encounter for fracture (07/31/20) Surgery Performed Operation Date: 08/01/20 15:45 Actual Procedures p ORIF Hip/Cannulated Screws vs DHS(Left) - Félix Regalado MD Physical Therapy Treatment Note M2 PT-IP Current Condition Start: 08/02/20 12:00 Freq: NEEDED Status: Active Protocol: Document 08/02/20 12:00 [facility] (Rec: 08/02/20 12:13 [facility] [id number]) Physical Therapy Current Condition Current Condition Evaluation Date 08/02/20 Treatment Diagnosis GLF w/L femur fracture s/p screw fixation Weight Bearing Status Weight Bearing Status Weight Bear as Tolerated M3 PT-IP Subjective Start: 08/02/20 12:00 Freq: NEEDED Status: Active Protocol: Document 08/02/20 14:11 SP (Rec: 08/02/20 15:07 SP [id number]) Subjective Physical Therapy Visit Type Type Treatment Note Visit Start Time 14:11 Visit Stop Time 14:30 Total Visit Minutes 19 Number of CASE MAKING MACHINE OPERATOR Visits 1 Physical Therapy Visit Comments Patient Comments Pt willing to work with therapy. Patient Goals Leave this PM with his girlfriend to assist him at home. Therapy Pain Assessment Pain When Pain Assessed During Mobility Pain Present Pain Present Pain Reported Location Left Hip Intensity 5 Scale Used Numeric (0 - 10) Description With Movement Pain Behaviors Facial Grimacing Pain Management Techniques Re-positioning,Timing of Activity with Medications M4 PT-IP Mobility and Gait Start: 08/02/20 12:00 Freq: NEEDED Status: Active Protocol: Document 08/02/20 14:11 SP (Rec: 08/02/20 15:07 SP [id number]) PT-Transfer Assessment Sit to and From Stand Sit to and from Stand Standby Assistance,Use of Upper Extremities Equipment Transfer Assistive Device Gait Belt,Axillary Crutches Orthotic/Prosthetic Devices or Brace: No Transfers Transfer Destination Chair,Toilet Transfer Technique ambulated using axillary crutches Transfer Ability Level of Assist Contact Guard Assistance,Use of Upper Extremities Comments Mobility Comments Pt was upright seated in reclined when arrived. Sit> stand using BUE then provided axillary crutches, CGA. Ambulated approx 150 ft using B crutches into hallway CGA, provided educaation for decrease conversation and allowance of standing rest breaks (took 2 brief breaks) to allow proper breath control due to noted + SOB, recovery quickly seconds maintained SaO2 mid 90s. Pt returned to room static standing front chair with good balance taking pain meds, requested during walk from nurse, stable with head turns CGA no AD WBAT 50% BLE demonstrated. Pt proceeded to ambulate to bathroom approx 8 ft using crutches SBA , Stand>sit with use of grab bar sBA, completed self hygiene in standing with support of grab bar, ambulated to sink approx 15 ft, static standing w/ crutches under arms light contact on sink for self balance, ambulated back to chair 4 ft sBA and educated placing B crutches in on 1 hand and slow descent to chair with other hand on chair arm rest, stable sBA. Pt had call light and all needs in reach before left. Pt stated will be able to get ride to outpt PT and will call and set up with a PT he knows. Pt is ok to return home with girlfriend to assist him when medically cleared. Gait Assessment Gait Gait Assistance Required: Standby Assistance,Contact Guard Assist Distance (Feet) 158 Able to Maintain Weight Bearing Status Yes During Gait Assistive Devices Assistive Device Gait Belt,Axillary Crutches Orthotic/Prosthetic Devices or Brace: No Gait Deviations General Gait Pattern Decreased Stride Length,Flexed Trunk Factors Limiting Gait Function Factors Limiting Gait Function Decreased Activity Tolerance, Decreased Strength,Limited Range of Motion,Pain Comments Gait Comments Cued pt for L LE knee flexion and ankle DF during swing through phase to decrease hip hike compensations toward end of gait distance using axillary crutches CGA> sBA. Stair Climbing Assessment Comments Stair Climbing Comments Completed in am, not need further assessment. PT-Balance Assessment Sitting Balance and Reactions Static Sitting Balance Ability Normal Dynamic Sitting Balance Ability Normal Standing Balance and Reactions Static Standing Balance Ability Good Dynamic Standing Balance Ability Good Device Used crutches Comments Other Balance Tests/Deviations/Treatment Static standing taking meds at : front chair including head turns, no AD, BLE WB evenly, CGA, stable, approx 1.5 minutes after returned from walk and no sit rest. M5 PT-IP Objective Assessments Start: 08/02/20 12:00 Freq: NEEDED Status: Active Protocol: Document 08/02/20 12:00 [facility] (Rec: 08/02/20 12:13 [facility] [id number]) Orientation Orientation/Cognition Level of Alertness Alert Language Function Ability No Deficits Noted Safety Awareness Understands Safety Issues Memory Description No Deficits Noted Strength Lower Extremity Strength Assessment Left Impaired M6 PT-IP Treatment Start: 08/02/20 12:00 Freq: NEEDED Status: Active Protocol: Document 08/02/20 14:11 SP (Rec: 08/02/20 15:07 SP [id number]) Physical Therapy Treatment Education Education Provided Weight Bearing Status,Safety Other Treatments Other Treatment Performed CASE MAKING MACHINE OPERATOR discussed proper sequencing getting in/out tub. Pt suggested acquiring shower bench/stool, referred to DME paperwork for recommendations for safety with verbal confirmation will acquire one. M7 PT-IP Assessment and Plan Start: 08/02/20 12:00 Freq: NEEDED Status: Active Protocol: Document 08/02/20 14:11 SP (Rec: 08/02/20 15:07 SP [id number]) PT Summary Assessment and Plan Potential Rehabilitation Potential Good Status of Condition at Evaluation Evolving Summary Impairments Pain,ROM,Strength,Balance,Bed Mobility,Transfers,Gait, Activity Tolerance Progress Towards Goals Progressing Toward Goals,Slow Progress due to Pain,Slow Progress due to Activity Tolerance Assessment Summary Pt required CG> SBA during all mobility, recalled 3/3 and maintained precautions during mobility using B axillary crutches. CASE MAKING MACHINE OPERATOR dispensed B axillary crutches, including fitting for proper height per supervising PT request for home use, did have, patient in agreement. Pt ambulated further distance in hallway. Pt is ok to return home with girlfriend to assist him when medically stable. Recommending outpt PT to improve strength, ROM toward PLOF, pt stated knows a PT wants to see and will call and set up an appt. Goals Bed Mobility Goal Independent Transfer Goal Independent Gait Goal Independent Gait Distance 110ft Other Goals up/down 2 stairs w/crutches SBA Days to Meet Goals 4 Frequency of Treatment Frequency Of Treatment Twice a Day Treatment Plan Physical Therapy Treatment Plan Bed Mobility Training,Transfer Training,Gait Training, Therapeutic Exercise,Balance Retraining,Post Op Education, Discharge Planning, Neuromuscular Re-ed Other Recommendations and Next Treatment edu for in/out of tub, review Focus stairs, gait training w/ crutches Recommendations To Nursing Amount of Assist Needed 1 Person Assist Discharge Recommendations PT Discharge Recommendations Home with Assistance, Outpatient PT Equipment Needed for Home Before crutches- dispensed. Discharge
[2020-08-02 15:55] VITALS: BP 159/68; PULSE 86; RESP 21; TEMP 37.3; O2SAT 95
== END 2020-08-02 16:05 | disposition home or self-care (01) | DRG 482 ==
LOC: ED 14:14 → AC 15:36
PROVIDERS: Nurse Practitioner Adult Health; Orthopaedic Surgery; Admitting Provider Internal Medicine; Emergency Provider Emergency Medicine; PCP Family Medicine; Referring Provider Emergency Medicine; Visit Provider Internal Medicine
PROC: 0QS704Z Reposition Left Upper Femur with Internal Fixation Device, Open Approach (ICD-10-PCS; principal; 2020-08-01 15:45)
DX: M84.452A Pathological fracture, left femur, initial encounter for fracture (principal); J61 Pneumoconiosis due to asbestos and other mineral fibers; W01.0XXA Fall on same level from slipping, tripping and stumbling without subsequent striking against object, initial encounter; Y93.K1 Activity, walking an animal; Z87.891 Personal history of nicotine dependence; Z86.73 Personal history of transient ischemic attack (TIA), and cerebral infarction without residual deficits; Z20.822 Contact with and (suspected) exposure to COVID-19
CPT/HCPCS: 36415; 71045; 73502; 76000; 80048; 80053; 81001; 85025; 87635; 93005; 94010; 96361; 96374; 96375; 96376; 97116; 97162; 99283; 99284; 99406; C9803; J0690; J1100; J1170; J2405; J2704; J3010

== ENCOUNTER 2020-08-07 01:39 | Emergency (ER) | payer MEDICARE, MEDICAID, SELFPAY ==
[2020-08-07 02:00] VITALS: BP 133/70; PULSE 80; RESP 14; TEMP 37.2; O2SAT 98; BMI 23.0
[2020-08-07 02:55] LABS: Appearance Urine UA CLOUDY; Color Urine UA RED; Glucose Urine UA NEGATIVE (Negative); Protein Urine UA 4+ (Negative); pH Urine UA 6 (4.5-8.0)
[2020-08-07 02:56] LABS: Bilirubin Urine UA Negative (NEGATIVE); Occult Blood Urine UA 3+ (Negative)
[2020-08-07 02:57] LABS: Bacteria Urine Many (>30); Leukocyte Esterase Urine UA 3+ (NEGATIVE); RBC Urine >100/HPF (0-5/HPF); WBC Urine 30-100/HPF (0-5/HPF)
[2020-08-07 02:59] LABS: Culture Indicated Urine Specimen Cultured
[2020-08-07 03:00] LABS: Add Manual Diff / Slide Review YES; Hematocrit 42.4 % (41-53); Hemoglobin 14.5 g/dL (13.5-17.5); Mean Corpuscular HGB Conc 34.1 % (30-36); Mean Corpuscular Hemoglobin 32.7 PG (26-34); Platelet Count 229 X10^3/uL (150-400); Red Blood Cell Count 4.42 X10^6/uL (4.5-5.9); Red Cell Distribution Width 12.5 % (11.6-14.8); White Blood Cell Count 9.3 X10^3/uL (4.5-11.0)
[2020-08-07 03:01] LABS: Alanine Aminotransferase 34 IU/L (<50); Albumin 4.1 g/dL (3.5-5.0); Albumin Globulin Ratio 1.4 (1.0-2.8); Alkaline Phosphatase 83 U/L (38-126); Aspartate Aminotransferase 28 IU/L (17-59); BUN Creatinine Ratio 38.8 (6-22); Bilirubin Total 0.7 mg/dL (0.2-1.3); Blood Urea Nitrogen 26 mg/dL (9-20); Carbon Dioxide 25 mmol/L (22-32); Chloride 104 mmol/L (98-107); Estimated Glomerular Filt Rate > 60.0 mL/min (>60); Globulin 2.9 g/dL (1.7-4.1); Glucose 109 mg/dL (80-110); HEMOLYSIS < 15 (0-50); Potassium 3.9 mmol/L (3.4-5.1); Sodium 137 mmol/L (137-145)
--- NOTE | 2020-08-07 03:23 | ED.GENADULT ---
HPI - General Adult General Chief complaint: Urogenital-Male Stated complaint: prostate problem/bowel problem Time Seen by Provider: 08/07/20 01:49 Source: patient Mode of arrival: Wheelchair Limitations: no limitations History of Present Illness HPI narrative: 70-year-old gentleman with a history of left ORIF of a femoral neck fracture on August 01 with discharge on August 02 with medical history complicated by asbestosis and prior CVA presents with complaints of increasing dysuria and frequency since hospital discharge to the point where he is voiding almost every 5-10 minutes and it has become significantly bloody over the course of the evening. He describes no fevers, abdominal pain or flank pain. He feels like he is voiding completely. No headaches, chest pain, palpitations, dyspnea. Related Data Home Medications Medication Instructions Recorded Confirmed fluticasone propionate 1 spray INTRANASAL DAILY 08/01/20 08/01/20 fluticasone propionate [Allergy 1 spray INTRANASAL BEDTIME 08/01/20 08/01/20 Relief (fluticasone)] Previous Rx's Medication Instructions Recorded acetaminophen 975 mg PO TID 30 Days #270 tab 08/02/20 aspirin 81 mg PO BID 42 Days #84 tab 08/02/20 oxycodone 5 mg PO Q4H PRN #30 tab 08/02/20 cephalexin 500 mg PO TID #15 cap 08/07/20 Allergies Allergy/AdvReac Type Severity Reaction Status Date / Time No Known Drug Allergies Allergy Verified 05/24/20 12:55 Review of Systems Review of Systems ROS Unobtainable: All systems reviewed & are unremarkable except as noted in HPI and below Patient History Medical History Allergic rhinitis Asbestosis Cellulitis of left foot Closed fracture of left hip CVA (cerebral vascular accident) Edema History of nicotine dependence Hyperlipidemia Prostate cancer screening Varicose veins of both legs with edema Venous stasis Social History household members: significant other and other Smoking Status: Former smoker alcohol intake: former Smoking Status: Former smoker alcohol intake frequency: 0-2 drinks per day Substance Use Type: marijuana Exam Narrative Exam Narrative: General: Healthy appearing, in no acute distress. Able to give a complete and wondering history. HEENT: Moist mucous membranes, normal sclera with reactive pupils, Respiratory: Lungs are clear to auscultation, no wheezing no rales no rhonchi. Full and symmetrical air movement Cardiac: Regular rate and rhythm no murmurs no bruits Abdomen: Soft, nontender, good bowel tones, no flank pain Skin: Warm and dry, no rashes Neurologic: Grossly neurologically intact with no obvious asymmetries or abnormalities Extremities: No trauma, well perfused Psych: Cooperative, appropriate insight and affect Postvoid residual: Less than 10 cc Initial Vital Signs Initial Vital Signs: Vital Signs Temperature 99.0 F 08/07/20 02:00 Pulse Rate 80 08/07/20 02:00 Respiratory Rate 14 08/07/20 02:00 Blood Pressure 133/70 08/07/20 02:00 Pulse Oximetry 98 08/07/20 02:00 Course Orders Ordered: ED Orders 08/07/20 02:10 Urinalysis and Microscopic Stat Urine Culture Stat 08/07/20 02:40 Complete Blood Count AUTO DIFF Stat Comprehensive Metabolic Panel Stat Discontinued Medications Ceftriaxone Sodium/Dextrose (Rocephin) 1 gm in 50 mls @ 100 mls/hr IV NOW ONE Stop: 08/07/20 03:53 Last Admin: 08/07/20 03:51 Dose: 100 mls/hr Documented by: Phenazopyridine HCl (Phenazopyridine 100 Mg Prepack) 1 bottle MISC SEEINSTR ONE Stop: 08/07/20 03:43 Last Admin: 08/07/20 03:51 Dose: 1 bottle Documented by: Vital Signs Vital signs: Vital Signs - 8 hr 08/07/20 02:00 Temperature 99.0 F Pulse Rate 80 Respiratory Rate 14 Blood Pressure 133/70 Pulse Oximetry 98 Medical Decision Making Medical Records Medical records reviewed: Yes I reviewed the patient's medical records. Lab Data Lab results reviewed: Yes I reviewed the patient's lab results. Result diagrams: 08/07/20 02:40 08/07/20 02:40 Labs: Lab Results 08/07/20 08/07/20 08/07/20 Range/Units 02:10 02:40 02:40 WBC 9.3 (4.5-11.0) X10^3/uL RBC 4.42 L (4.5-5.9) X10^6/uL Hgb 14.5 (13.5-17.5) g/dL Hct 42.4 (41-53) % MCV 96.0 (80-100) fL MCH 32.7 (26-34) PG MCHC 34.1 (30-36) % RDW 12.5 (11.6-14.8) % Plt Count 229 (150-400) X10^3/uL Neut % (Auto) Not Reportable Lymph % (Auto) Not Reportable [place] % (Auto) Not Reportable Eos % (Auto) Not Reportable Baso % (Auto) Not Reportable Lymph # (Auto) Not Reportable [place] # (Auto) Not Reportable Baso # (Auto) Not Reportable Total Counted 100 Seg Neutrophils % 59.0 (38-70) % Band Neutrophils % 8.0 H (3-7) % Lymphocytes % (Manual) 6.0 L (25-45) % Atypical Lymphs % 16.0 H ( - 0) % Monocytes % (Manual) 9.0 (2-11) % Eosinophils % (Manual) 2.0 (2-4) % Neutrophils # (Manual) 6231 H (4884-9099) /uL RBC Morphology Normal morphology Sodium 137 (137-145) mmol/L Potassium 3.9 (3.4-5.1) mmol/L Chloride 104 (98-107) mmol/L Carbon Dioxide 25 (22-32) mmol/L BUN 26 H (9-20) mg/dL Creatinine 0.67 (0.66-1.25) mg/dL Estimated GFR > 60.0 (>60) mL/min BUN/Creatinine Ratio 38.8 H (6-22) Glucose 109 (80-110) mg/dL Calcium 9.0 (8.4-10.2) mg/dL Total Bilirubin 0.7 (0.2-1.3) mg/dL AST 28 (17-59) IU/L ALT 34 (<50) IU/L Alkaline Phosphatase 83 (38-126) U/L Total Protein 7.0 (6.3-8.2) g/dL Albumin 4.1 (3.5-5.0) g/dL Globulin 2.9 (1.7-4.1) g/dL Albumin/Globulin Ratio 1.4 (1.0-2.8) Urine Color Red Urine Appearance Cloudy Urine pH 6 (4.5-8.0) Ur Specific [place] 1.030 (1.000-1.035) Urine Protein 4+ H (Negative) Urine Glucose (UA) Negative (Negative) g/dL Urine Ketones Not Reportable Urine Occult Blood 3+ H (Negative) Urine Nitrate Not Reportable Urine Bilirubin Negative (NEGATIVE) Urine Urobilinogen Not Reportable Ur Leukocyte Esterase 3+ H (NEGATIVE) Urine RBC >100/hpf H (0-5/HPF) Urine WBC 30-100/hpf H (0-5/HPF) Urine Bacteria Many (>30) H (None) Ur Culture Indicated? Specimen cultured Micro UA Comment * MDM Narrative Medical decision making narrative: 70-year-old gentleman with hip fracture and surgical intervention 6 days ago with slight dysuria the day that the catheter was initially removed and getting increasingly worse until they presentation. He also notes some mild constipation with the total of 4 tablets of narcotic that he has taken postop. That has since resolved with some laxative use. He does not report systemic symptoms or complaints. Lab work does not suggest acute renal failure nor sepsis. Urine is grossly bloody and he does have significant dysuria with frequency. Urine is cultured. He is given 1g of IV ceftriaxone in the emergency department. He is given peridium to help with the bladder spasm and frequency complaints. Will have him complete an additional 5 days of cephalexin. At this point with no evidence of systemic disease, sepsis pyelonephritis he is safe for home discharge. Discharge Plan Departure Patient Disposition: Home Clinical Impression: Urinary tract infection Qualifiers: Urinary tract infection type: acute cystitis Hematuria presence: with hematuria Qualified Code(s): N30.01 - Acute cystitis with hematuria Instructions: DI for Urinary Tract Infection (UTI) Activity Restrictions/Additional Instructions: Thank you for coming in today You very clearly have a bladder infection and have been given IV antibiotics in the emergency department to begin to treat this. I do want you to complete an additional 5 days of antibiotics to make sure it is completely resolved. A prescription has been electronically transmitted to [facility] for you to coal picker later today. Your additional workup in the emergency department was reassuring. There is no evidence of acute urinary retention, overwhelming infection such as sepsis or kidney infection. You can use the Pyridium to help with bladder spasms and pain. I suspect that within 12 hours of receiving the IV antibiotics many of those symptoms will be significantly improved. If you feel that you are getting worse, you do need to return to the emergency department. I hope you feel better Prescriptions: New cephalexin 500 mg capsule 500 mg PO TID Qty: 15 RF: 0 No Action fluticasone propionate 50 mcg/actuation [place],Suspension 1 spray INTRANASAL DAILY RF: 0 fluticasone propionate [Allergy Relief (fluticasone)] 50 mcg/actuation spray,suspension 1 spray intranasal BEDTIME RF: 0 acetaminophen 325 mg Tablet 975 mg PO TID 30 Days Qty: 270 RF: 0 aspirin 81 mg Tablet,Delayed Release (Dr/Ec) 81 mg PO BID 42 Days Qty: 84 RF: 0 oxycodone 5 mg Tablet 5 mg PO Q4H PRN (Reason: Pain, Moderate (4-6)) Qty: 30 RF: 0 Referrals: Abilio Chase MD [Primary Care Provider] -
[2020-08-07 03:37] LABS: Neutrophils Absolute Manual 6231 /uL (3000-5900); Total Cells Counted 100
[2020-08-07 03:38] LABS: RBC Morphology Normal Morphology
[2020-08-07] MEDS: CEFTRIAXONE 1 GM/50 ML FROZ.PIGGY IV (03:51)
[2020-08-07] MEDS: PHENAZOPYRIDINE 100 MG PREPACK 1 BOTTLE MISC (03:51)
[2020-08-07 04:49] VITALS: BP 126/72; PULSE 74; RESP 18; O2SAT 95
== END 2020-08-07 04:50 | disposition home or self-care (01) ==
PROVIDERS: Emergency Provider Emergency Medicine; PCP Family Medicine
DX: N30.01 Acute cystitis with hematuria (principal)
CPT/HCPCS: 36415; 51798; 80053; 81001; 85007; 85025; 87077; 87086; 87186; 96365; 99284

== ENCOUNTER 2020-08-08 10:50 | Emergency (ER) | payer MEDICARE, MEDICAID, SELFPAY ==
[2020-08-08 11:15] VITALS: BP 149/77; PULSE 72; RESP 18; TEMP 36.5; O2SAT 98; BMI 23.0
--- NOTE | 2020-08-08 12:56 | ED.MALEGU ---
HPI - Male Genitourinary <ISA Bill - Last Filed: 08/08/20 15:24> General Chief complaint: Urogenital-Male Stated complaint: bladder problems Time Seen by Provider: 08/08/20 12:02 Source: patient Mode of arrival: Wheelchair Limitations: no limitations History of Present Illness HPI Narrative: The patient is a 70-year-old male former smoker with history of urinary tract infection who presents with a chief complaint of urinary issues. The patient had a left ORIF of a femoral neck fracture on August 01 and was discharged on the . He had a urinary catheter at that point, but it was removed. He presents to this emergency department on the complaining of increasing frequency since hospital discharge as well as dysuria. He also complained of hematuria. He was found have a urinary tract infection, 1 g of ceftriaxone, started on Keflex. He states that he was unable to urinate while last night, so he comes to the emergency department today. He denies any fevers muscle aches or chills. He states that he was able to urinate well this morning in the shower at 4:00 a.m.. He also notes that he had been suffering constipation, which he states was relieved this morning. He denies any abdominal pain. He states that his caregiver brought him in because they are concerned he might need a Brady catheter. Related Data Home Medications Medication Instructions Recorded Confirmed fluticasone propionate 1 spray INTRANASAL DAILY 08/01/20 08/01/20 fluticasone propionate [Allergy 1 spray INTRANASAL BEDTIME 08/01/20 08/01/20 Relief (fluticasone)] Previous Rx's Medication Instructions Recorded acetaminophen 975 mg PO TID 30 Days #270 tab 08/02/20 aspirin 81 mg PO BID 42 Days #84 tab 08/02/20 oxycodone 5 mg PO Q4H PRN #30 tab 08/02/20 cephalexin 500 mg PO TID #15 cap 08/07/20 Allergies Allergy/AdvReac Type Severity Reaction Status Date / Time No Known Drug Allergies Allergy Verified 08/08/20 11:19 Review of Systems <ISA Bill - Last Filed: 08/08/20 15:24> Review of Systems Narrative: GENERAL: Denies chills, fatigue, malaise, fever, sweats. HEENT: Denies sinus pain, ear pain, sore throat, difficulty swallowing, dizziness. RESPIRATORY: Denies dyspnea, cough, wheezing, hemoptysis, sputum. CARDIOVASCULAR: Denies chest pain, palpitations, orthopnea, edema, GASTROINTESTINAL: Denies nausea, vomiting, abdominal pain, diarrhea, constipation, melena. : See HPI MUSCULOSKELETAL: denies weakness, joint pain, or bony pain SKIN: Denies rash, skin lesions, or other NEUROLOGIC: Denies weakness, headache, numbness, change in speech, confusion, seizures, incoordination. PSYCHIATRIC: No concerning psychosocial issues. 12 point review of systems is negative except for those stated above Patient History <ISA Bill - Last Filed: 08/08/20 15:24> Medical History Allergic rhinitis Asbestosis Cellulitis of left foot Closed fracture of left hip CVA (cerebral vascular accident) Edema History of nicotine dependence Hyperlipidemia Prostate cancer screening Varicose veins of both legs with edema Venous stasis Social History household members: significant other and other Smoking Status: Former smoker alcohol intake: former Smoking Status: Former smoker alcohol intake frequency: 0-2 drinks per day Substance Use Type: marijuana Exam <ISA Bill - Last Filed: 08/08/20 15:24> Narrative Exam Narrative: GENERAL: This is a well-nourished, well-developed patient, in no acute distress HEAD: Atraumatic. Normocephalic. No temporal or scalp tenderness. EYES: Pupils equal round and reactive. Extraocular motions intact. No scleral icterus. No injection or drainage. ENT: Nose without bleeding, purulent drainage or septal hematoma. Throat without erythema, tonsillar hypertrophy or exudate. Uvula midline. Airway patent. NECK: Trachea midline. No JVD or lymphadenopathy. Supple, nontender, no meningeal signs. CARDIOVASCULAR: Regular rate and rhythm RESPIRATORY: Coarse bilateral to auscultation. Breath sounds equal bilaterally. Cough. No increased respiratory effort. Speaking full sentences. GASTROINTESTINAL: Abdomen soft, non-tender, nondistended. No hepato-splenomegaly, or palpable masses. No guarding. No suprapubic pain to palpation EXTREMITIES: No clubbing, cyanosis, or edema. No joint tenderness, effusion, or edema noted. BACK: Nontender without deformity or crepitance. No flank tenderness. NEURO: AOx3. SKIN: No rash or erythema on visible skin Initial Vital Signs Initial Vital Signs: Vital Signs Temperature 97.7 F 08/08/20 11:15 Pulse Rate 72 08/08/20 11:15 Respiratory Rate 18 08/08/20 11:15 Blood Pressure 149/77 H 08/08/20 11:15 Pulse Oximetry 98 08/08/20 11:15 <Dali Reza DO - Last Filed: 08/08/20 18:45> Initial Vital Signs Initial Vital Signs: Vital Signs Temperature 97.7 F 08/08/20 11:15 Pulse Rate 72 08/08/20 11:15 Respiratory Rate 18 08/08/20 11:15 Blood Pressure 149/77 H 08/08/20 11:15 Pulse Oximetry 98 08/08/20 11:15 Scores <ISA Bill - Last Filed: 08/08/20 15:24> GCS [place] coma scale eye opening: Spontaneous [place] coma scale verbal response: Orientated [place] coma scale motor response: Obey commands [place] coma scale total score: 15 Course <ISA Bill - Last Filed: 08/08/20 15:24> Orders Ordered: ED Orders 08/08/20 12:45 Urinalysis and Microscopic Stat Urine Culture Stat 08/08/20 13:10 Complete Blood Count AUTO DIFF Stat Comprehensive Metabolic Panel Stat Discontinued Medications Cephalexin HCl (Cephalexin 250 Mg Capsule) 500 mg PO NOW ONE Stop: 08/08/20 13:00 Last Admin: 08/08/20 13:32 Dose: 500 mg Documented by: MARISA Vital Signs Vital signs: Vital Signs - 8 hr 08/08/20 11:15 08/08/20 14:54 Temperature 97.7 F Pulse Rate 72 86 Respiratory Rate 18 16 Blood Pressure 149/77 H Pulse Oximetry 98 98 <Dali Reza DO - Last Filed: 08/08/20 18:45> Orders Ordered: ED Orders 08/08/20 12:45 Urinalysis and Microscopic Stat Urine Culture Stat 08/08/20 13:10 Complete Blood Count AUTO DIFF Stat Comprehensive Metabolic Panel Stat Discontinued Medications Cephalexin HCl (Cephalexin 250 Mg Capsule) 500 mg PO NOW ONE Stop: 08/08/20 13:00 Last Admin: 08/08/20 13:32 Dose: 500 mg Documented by: MARISA Vital Signs Vital signs: Vital Signs - 8 hr 08/08/20 11:15 08/08/20 14:54 Temperature 97.7 F Pulse Rate 72 86 Respiratory Rate 18 16 Blood Pressure 149/77 H Pulse Oximetry 98 98 MDM - Male Genitourinary <BETH Bill- - Last Filed: 08/08/20 15:24> Lab Data Attestation: I reviewed the patient's lab results. Result diagrams: 08/08/20 13:10 08/08/20 13:10 Labs: Lab Results 08/08/20 08/08/20 08/08/20 Range/Units 12:45 13:10 13:10 WBC 8.3 (4.5-11.0) X10^3/uL RBC 4.32 L (4.5-5.9) X10^6/uL Hgb 14.5 (13.5-17.5) g/dL Hct 41.5 (41-53) % MCV 96.0 (80-100) fL MCH 33.6 (26-34) PG MCHC 35.0 (30-36) % RDW 12.4 (11.6-14.8) % Plt Count 257 (150-400) X10^3/uL Neut % (Auto) 66.1 (50-75) % Lymph % (Auto) 20.0 L (25-40) % [place] % (Auto) 10.7 (3-14) % Eos % (Auto) 2.0 (2-4) % Baso % (Auto) 1.2 (0-2) % Neut # (Auto) 5500 (2129-5316) /uL Lymph # (Auto) 1700 (3632-3847) /uL [place] # (Auto) 900 (0-900) /uL Eos # (Auto) 200 (0-450) /uL Baso # (Auto) 100 (0-100) /uL Sodium 138 (137-145) mmol/L Potassium 4.3 (3.4-5.1) mmol/L Chloride 103 (98-107) mmol/L Carbon Dioxide 27 (22-32) mmol/L BUN 27 H (9-20) mg/dL Creatinine 0.65 L (0.66-1.25) mg/dL Estimated GFR > 60.0 (>60) mL/min BUN/Creatinine Ratio 41.5 H (6-22) Glucose 96 (80-110) mg/dL Calcium 9.1 (8.4-10.2) mg/dL Total Bilirubin 0.8 (0.2-1.3) mg/dL AST 30 (17-59) IU/L ALT 31 (<50) IU/L Alkaline Phosphatase 90 (38-126) U/L Total Protein 7.1 (6.3-8.2) g/dL Albumin 4.3 (3.5-5.0) g/dL Globulin 2.8 (1.7-4.1) g/dL Albumin/Globulin Ratio 1.5 (1.0-2.8) Urine Color [place] Urine Appearance Cloudy Urine pH 5.5 (4.5-8.0) Ur Specific [place] 1.025 (1.000-1.035) Urine Protein 2+ H (Negative) Urine Glucose (UA) Trace H (Negative) g/dL Urine Ketones 1+ H (NEGATIVE) Urine Occult Blood 3+ H (Negative) Urine Nitrate Positive (Negative) Urine Bilirubin Negative (NEGATIVE) Urine Urobilinogen 1.0 (0.2) E.U./dL Ur Leukocyte Esterase 2+ H (NEGATIVE) Urine RBC >100/hpf H (0-5/HPF) Urine WBC >100/hpf H (0-5/HPF) Ur Squamous Epith Cells 1-5 /hpf (0-5/HPF) Ur Renal Epithelial Cell 0-1/hpf (0-1/HPF) Amorphous Sediment 2+ Urine Bacteria Moderate (10-30) H (None) Urine Mucus 2+ H (Negative) Ur Culture Indicated? Specimen cultured MDM Narrative Medical decision making narrative: The patient is a 70-year-old male with history of urinary tract infection, seen and evaluated this facility on yesterday morning who presents with a chief complaint of possible urinary retention. He is taking his Keflex as previously prescribed. Previous cultures were consulted, sensitivity has not resulted yet. The patient overall well appears well and nontoxic, no leukocytosis, normal renal function on labs. We will hold off on changing antibiotics pending culture and sensitivity. Patient does have continued signs of infection in his urine. However his primary concern today is possible retention, he was bladder scanned at less than 350 cc. Patient does not have any pain or discomfort. Consulted Dr Reza and elected to hold off on Brady catheter at this point time. I did discuss at length strict return precautions for inability to urinate, follow-up with primary care provider, continued use of antibiotics. Discussed that we will contact him if we need to change antibiotics based on urine culture. Patient has no questions or concerns upon discharge states understanding return precautions as well as follow-up care with primary care provider in the next 48-72 hours. <Dali eRza, DO - Last Filed: 08/08/20 18:45> Lab Data Labs: Lab Results 08/08/20 08/08/20 08/08/20 Range/Units 12:45 13:10 13:10 WBC 8.3 (4.5-11.0) X10^3/uL RBC 4.32 L (4.5-5.9) X10^6/uL Hgb 14.5 (13.5-17.5) g/dL Hct 41.5 (41-53) % MCV 96.0 (80-100) fL MCH 33.6 (26-34) PG MCHC 35.0 (30-36) % RDW 12.4 (11.6-14.8) % Plt Count 257 (150-400) X10^3/uL Neut % (Auto) 66.1 (50-75) % Lymph % (Auto) 20.0 L (25-40) % [place] % (Auto) 10.7 (3-14) % Eos % (Auto) 2.0 (2-4) % Baso % (Auto) 1.2 (0-2) % Neut # (Auto) 5500 (9501-4056) /uL Lymph # (Auto) 1700 (0035-0253) /uL [place] # (Auto) 900 (0-900) /uL Eos # (Auto) 200 (0-450) /uL Baso # (Auto) 100 (0-100) /uL Sodium 138 (137-145) mmol/L Potassium 4.3 (3.4-5.1) mmol/L Chloride 103 (98-107) mmol/L Carbon Dioxide 27 (22-32) mmol/L BUN 27 H (9-20) mg/dL Creatinine 0.65 L (0.66-1.25) mg/dL Estimated GFR > 60.0 (>60) mL/min BUN/Creatinine Ratio 41.5 H (6-22) Glucose 96 (80-110) mg/dL Calcium 9.1 (8.4-10.2) mg/dL Total Bilirubin 0.8 (0.2-1.3) mg/dL AST 30 (17-59) IU/L ALT 31 (<50) IU/L Alkaline Phosphatase 90 (38-126) U/L Total Protein 7.1 (6.3-8.2) g/dL Albumin 4.3 (3.5-5.0) g/dL Globulin 2.8 (1.7-4.1) g/dL Albumin/Globulin Ratio 1.5 (1.0-2.8) Urine Color [place] Urine Appearance Cloudy Urine pH 5.5 (4.5-8.0) Ur Specific [place] 1.025 (1.000-1.035) Urine Protein 2+ H (Negative) Urine Glucose (UA) Trace H (Negative) g/dL Urine Ketones 1+ H (NEGATIVE) Urine Occult Blood 3+ H (Negative) Urine Nitrate Positive (Negative) Urine Bilirubin Negative (NEGATIVE) Urine Urobilinogen 1.0 (0.2) E.U./dL Ur Leukocyte Esterase 2+ H (NEGATIVE) Urine RBC >100/hpf H (0-5/HPF) Urine WBC >100/hpf H (0-5/HPF) Ur Squamous Epith Cells 1-5 /hpf (0-5/HPF) Ur Renal Epithelial Cell 0-1/hpf (0-1/HPF) Amorphous Sediment 2+ Urine Bacteria Moderate (10-30) H (None) Urine Mucus 2+ H (Negative) Ur Culture Indicated? Specimen cultured Discharge Plan Departure Patient Disposition: Home Clinical Impression: Urinary tract infection Qualifiers: Urinary tract infection type: site unspecified Hematuria presence: with hematuria Qualified Code(s): N39.0 - Urinary tract infection, site not specified Instructions: DI for Urinary Tract Infection (UTI) Activity Restrictions/Additional Instructions: Thank you for trusting us with your care today. As discussed, your urine is still showing signs of infection. Please continue the antibiotic. We are doing a urine culture, we will call you if we need to change your antibiotics. As discussed, you are retaining urine, but we are not at the point where you need a Brady catheter yet. Please come back to the emergency department if your unable to urinate. Please also come back to the emergency department for any acute concerns such as high fevers, severe flank pain etcetera Please rest, push fluids, please come back to the emergency department for any acute concerns. Please follow-up with primary care provider in the next 48-72 hours. Prescriptions: No Action cephalexin 500 mg capsule 500 mg PO TID Qty: 15 RF: 0 fluticasone propionate 50 mcg/actuation [place],Suspension 1 spray INTRANASAL DAILY RF: 0 fluticasone propionate [Allergy Relief (fluticasone)] 50 mcg/actuation spray,suspension 1 spray intranasal BEDTIME RF: 0 acetaminophen 325 mg Tablet 975 mg PO TID 30 Days Qty: 270 RF: 0 aspirin 81 mg Tablet,Delayed Release (Dr/Ec) 81 mg PO BID 42 Days Qty: 84 RF: 0 oxycodone 5 mg Tablet 5 mg PO Q4H PRN (Reason: Pain, Moderate (4-6)) Qty: 30 RF: 0 Referrals: Abilio Chase MD [Primary Care Provider] - <Dali Reza DO - Last Filed: 08/08/20 18:45> Cosign ED Attending Mercedesature Attestation: I was immediately available in the department for consultation. Documentation has been reviewed. I agree with assessment and plan.
[2020-08-08 13:03] LABS: Appearance Urine UA CLOUDY; Bilirubin Urine UA NEGATIVE (NEGATIVE); Color Urine UA ORANGE; Glucose Urine UA TRACE g/dL (Negative); Ketones Urine UA 1+ (NEGATIVE); Leukocyte Esterase Urine UA 2+ (NEGATIVE); Nitrite Urine UA POSITIVE (Negative); Occult Blood Urine UA 3+ (Negative); Protein Urine UA 2+ (Negative); Specific Gravity Urine UA 1.025 (1.000-1.035); pH Urine UA 5.5 (4.5-8.0)
[2020-08-08 13:09] LABS: RBC Urine >100/HPF (0-5/HPF); WBC Urine >100/HPF (0-5/HPF)
[2020-08-08 13:10] LABS: Amorphous Sediment Urine 2+; Bacteria Urine Moderate (10-30); Culture Indicated Urine Specimen Cultured; Mucus Urine 2+ (Negative); Renal Epithelial Cells Urine 0-1/HPF (0-1/HPF); Squamous Epithelial Cell Urine 1-5 /HPF (0-5/HPF)
[2020-08-08 13:16] LABS: Add Manual Diff / Slide Review NO; Basophils Absolute Auto 100 /uL (0-100); Basophils Percent Auto 1.2 % (0-2); Eosinophils Absolute Auto 200 /uL (0-450); Hematocrit 41.5 % (41-53); Hemoglobin 14.5 g/dL (13.5-17.5); Lymphocytes Absolute Auto 1700 /uL (1100-4500); Mean Corpuscular Hemoglobin 33.6 PG (26-34); Monocytes Absolute Auto 900 /uL (0-900); Monocytes Percent Auto 10.7 % (3-14); Neutrophils Absolute Auto 5500 /uL (1500-7000); Neutrophils Percent Auto 66.1 % (50-75); Platelet Count 257 X10^3/uL (150-400); Red Blood Cell Count 4.32 X10^6/uL (4.5-5.9); Red Cell Distribution Width 12.4 % (11.6-14.8); White Blood Cell Count 8.3 X10^3/uL (4.5-11.0)
[2020-08-08 13:29] LABS: Alanine Aminotransferase 31 IU/L (<50); Albumin 4.3 g/dL (3.5-5.0); Albumin Globulin Ratio 1.5 (1.0-2.8); Alkaline Phosphatase 90 U/L (38-126); Aspartate Aminotransferase 30 IU/L (17-59); BUN Creatinine Ratio 41.5 (6-22); Bilirubin Total 0.8 mg/dL (0.2-1.3); Blood Urea Nitrogen 27 mg/dL (9-20); Calcium 9.1 mg/dL (8.4-10.2); Carbon Dioxide 27 mmol/L (22-32); Chloride 103 mmol/L (98-107); Estimated Glomerular Filt Rate > 60.0 mL/min (>60); Globulin 2.8 g/dL (1.7-4.1); Glucose 96 mg/dL (80-110); HEMOLYSIS < 15 (0-50); Potassium 4.3 mmol/L (3.4-5.1); Sodium 138 mmol/L (137-145); Total Protein 7.1 g/dL (6.3-8.2)
[2020-08-08] MEDS: cephALEXin 250 MG CAPSULE 500 MG PO (13:32)
[2020-08-08 14:54] VITALS: PULSE 86; RESP 16; O2SAT 98
== END 2020-08-08 14:55 | disposition home or self-care (01) ==
PROVIDERS: Emergency Provider Nurse Practitioner Family; PCP Family Medicine
DX: N39.0 Urinary tract infection, site not specified (principal)
CPT/HCPCS: 36415; 51798; 80053; 81001; 85025; 87086; 99283

== ENCOUNTER → 2020-08-14 17:02 | Outpatient (CLI) | payer MEDICARE, MEDICAID, SELFPAY ==
[2020-08-09 13:20] VITALS: BMI 23.0
[2020-08-14 17:58] LABS: Alanine Aminotransferase 32 IU/L (<50); Albumin 4.1 g/dL (3.5-5.0); Albumin Globulin Ratio 1.7 (1.0-2.8); Alkaline Phosphatase 71 U/L (38-126); Aspartate Aminotransferase 34 IU/L (17-59); BUN Creatinine Ratio 27.4 (6-22); Bilirubin Total 0.3 mg/dL (0.2-1.3); Blood Urea Nitrogen 20 mg/dL (9-20); Calcium 8.9 mg/dL (8.4-10.2); Carbon Dioxide 30 mmol/L (22-32); Chloride 101 mmol/L (98-107); Cholesterol 115 mg/dL (140-199); Estimated Glomerular Filt Rate > 60.0 mL/min (>60); Globulin 2.4 g/dL (1.7-4.1); Glucose 93 mg/dL (80-110); HDL Cholesterol 57 mg/dL (40-60); HEMOLYSIS < 15 (0-50); LDL Cholesterol Calculated 45 mg/dL (<100); Potassium 4.3 mmol/L (3.4-5.1); Sodium 137 mmol/L (137-145); Total Protein 6.5 g/dL (6.3-8.2); Triglycerides 64 mg/dL (35-150)
[2020-08-14 18:29] LABS: Prostate Specific Antigen Scrn 6.06 ng/mL (0.1-4.0)
== END ==
PROVIDERS: PCP Family Medicine; Referring Provider Family Medicine; Visit Provider Family Medicine
DX: E78.5 Hyperlipidemia, unspecified (principal); Z12.5 Encounter for screening for malignant neoplasm of prostate; R60.9 Edema, unspecified
CPT/HCPCS: 36415; 80053; 80061; G0103

== ENCOUNTER → 2021-02-02 12:02 | Outpatient (CLI) | payer MEDICARE, MEDICAID, SELFPAY ==
[2020-11-09 13:37] VITALS: BMI 23.0
[2021-02-02 13:42] LABS: Prostate Specific Antigen 6.26 ng/mL (0.10-4.00)
== END ==
PROVIDERS: PCP Family Medicine; Referring Provider Specialist; Visit Provider Specialist
DX: N40.1 Benign prostatic hyperplasia with lower urinary tract symptoms (principal); N13.8 Other obstructive and reflux uropathy
CPT/HCPCS: 36415; 84153

== ENCOUNTER → 2021-02-07 14:06 | Outpatient (CLI) | payer MEDICARE, MEDICAID, SELFPAY ==
[2020-11-09 13:37] VITALS: BMI 23.0
== END ==
PROVIDERS: PCP Family Medicine; Visit Provider Specialist
DX: R97.20 Elevated prostate specific antigen [PSA] (principal); N40.1 Benign prostatic hyperplasia with lower urinary tract symptoms; N13.8 Other obstructive and reflux uropathy; Z87.440 Personal history of urinary (tract) infections
CPT/HCPCS: 51798; 81002; 87077; 87086; 87186; 99214

== ENCOUNTER → 2021-03-28 15:14 | Outpatient (CLI) | payer MEDICARE, MEDICAID, SELFPAY ==
[2021-02-07 15:42] VITALS: BMI 23.0
[2021-03-28 16:56] LABS: Prostate Specific Antigen 5.73 ng/mL (0.10-4.00)
[2021-03-30 20:38] LABS: Fecal Immunochemical Test Negative (Negative)
== END ==
PROVIDERS: PCP Family Medicine; Referring Provider Specialist; Visit Provider Specialist
DX: C61 Malignant neoplasm of prostate (principal); Z12.11 Encounter for screening for malignant neoplasm of colon
CPT/HCPCS: 36415; 82274; 84153

== ENCOUNTER → 2021-11-30 14:20 | Outpatient (CLI) | payer MEDICARE, MEDICAID, SELFPAY ==
[2021-02-07 15:42] VITALS: BMI 23.0
[2021-11-30 17:03] LABS: Prostate Specific Antigen 5.58 ng/mL (0.10-4.00)
== END ==
PROVIDERS: PCP Family Medicine; Referring Provider Specialist; Visit Provider Specialist
DX: R97.20 Elevated prostate specific antigen [PSA] (principal)
CPT/HCPCS: 36415; 84153

== ENCOUNTER → 2022-12-06 15:11 | Outpatient (CLI) | payer MEDICARE, MEDICAID, SELFPAY ==
[2021-02-07 15:42] VITALS: BMI 23.0
[2022-12-06 16:21] LABS: Prostate Specific Antigen 6.45 ng/mL (0.10-4.00)
== END ==
PROVIDERS: PCP Family Medicine; Referring Provider Specialist; Visit Provider Specialist
DX: R97.20 Elevated prostate specific antigen [PSA] (principal)
CPT/HCPCS: 36415; 84153

== ENCOUNTER → 2023-01-16 16:18 | Outpatient (CLI) | payer MEDICARE, MEDICAID, SELFPAY ==
[2021-02-07 15:42] VITALS: BMI 23.0
--- NOTE | 2023-01-16 16:20 | DI.MRI.S_ITS ---
PROCEDURE: MR PELIS WO/W CON INDICATIONS: elevated PSA TECHNIQUE: Coronal HASTE, axial T1 FSE with fat saturation, 3-plane nonbreath-hold T2 FSE. After the administration of contrast, dynamic axial, delayed axial and coronal VIBE or 2-D FLASH with fat saturation through the pelvis. Optional diffusion weighted imaging and ADC may be performed. COMPARISON: None. FINDINGS: Image quality: Diffusion weighted and dynamic contrast enhanced images are diagnostic. Prostate: Gland size is 4.9 x 4.1 x 4.8 cm; ellipsoid gland volume is 50 mL. There are few BPH nodules present. Lesion 1. There is mildly decreased T2 signal throughout the periphery of the prostate gland with only a small indistinct area of mildly restricted diffusion in the right posterolateral peripheral zone at the mid gland level. On diffusion-weighted imaging this area measures approximately 1.4 cm in transverse diameter and does not distort the gland margin. Mildly T2 hypointense, mild diffusion-weighted abnormality without significant ADC abnormality. No suspicious hyperenhancement. PI-RADS score two. Genitourinary system: There is air anteriorly in the bladder. Bladder wall thickness is normal. Distal ureters are non distended. Bowel and peritoneum: No pathologic free pelvic fluid. Inferior colon and small bowel loops are normal in caliber. Nodes and vessels: No pelvic or inguinal adenopathy by size criteria. Iliac vessels are normal in caliber. Soft tissues: Wide necked, small bowel and fat containing bilateral inguinal hernias. Small right and trace left hydroceles. Bones: Left hip arthroplasty. No suspicious enhancement) given technical artifact around the left acetabulum). IMPRESSION: 1. Mildly enlarged prostate gland with changes of early BPH. 2. Vague hypointensity throughout the posterior peripheral zone with a single vague area of abnormal diffusion signal. This lesion is PI-RADS two. 3. Bilateral fat and bowel containing inguinal hernias. Dictated by: Margot Little M.D. on 01/17/2023 at 14:47 Approved by: Margot Little M.D. on 01/17/2023 at 15:05
== END ==
PROVIDERS: PCP Family Medicine; Referring Provider Specialist; Visit Provider Specialist
DX: N40.0 Benign prostatic hyperplasia without lower urinary tract symptoms (principal); K40.20 Bilateral inguinal hernia, without obstruction or gangrene, not specified as recurrent; R97.20 Elevated prostate specific antigen [PSA]
CPT/HCPCS: 72197; A9579

== ENCOUNTER → 2023-02-13 12:52 | Outpatient (CLI) | payer MEDICARE, MEDICAID, SELFPAY ==
[2021-02-07 15:42] VITALS: BMI 23.0
[2023-02-13 13:28] LABS: Add Manual Diff / Slide Review NO; Basophils Absolute Auto 0 /uL (0-100); Basophils Percent Auto 0.7 % (0-2); Eosinophils Absolute Auto 100 /uL (0-450); Eosinophils Percent Auto 1.5 % (2-4); Hematocrit 44.1 % (41-53); Hemoglobin 15.2 g/dL (13.5-17.5); Lymphocytes Absolute Auto 1500 /uL (1100-4500); Lymphocytes Percent Auto 25.4 % (25-40); Mean Corpuscular HGB Conc 34.5 % (30-36); Mean Corpuscular Hemoglobin 33.1 PG (26-34); Mean Corpuscular Volume 95.8 fL (80-100); Monocytes Absolute Auto 500 /uL (0-900); Monocytes Percent Auto 9.2 % (3-14); Neutrophils Absolute Auto 3800 /uL (1500-7000); Neutrophils Percent Auto 63.2 % (50-75); Platelet Count 216 X10^3/uL (150-400); Red Blood Cell Count 4.61 X10^6/uL (4.5-5.9); Red Cell Distribution Width 12.8 % (11.6-14.8)
[2023-02-13 13:51] LABS: Alanine Aminotransferase 34 IU/L (<50); Albumin 4.1 g/dL (3.5-5.0); Albumin Globulin Ratio 1.8 (1.0-2.8); Alkaline Phosphatase 74 U/L (38-126); Aspartate Aminotransferase 29 IU/L (17-59); BUN Creatinine Ratio 24.3 (6-22); Bilirubin Total 0.9 mg/dL (0.2-1.3); Blood Urea Nitrogen 17 mg/dL (9-20); Calcium 9.4 mg/dL (8.4-10.2); Carbon Dioxide 28 mmol/L (22-32); Chloride 104 mmol/L (98-107); Cholesterol 130 mg/dL (140-199); Estimated Glomerular Filt Rate > 60 mL/min (>60); Globulin 2.3 g/dL (1.7-4.1); Glucose 89 mg/dL (80-110); HDL Cholesterol 61 mg/dL (40-60); HEMOLYSIS < 15 (0-50); LDL Cholesterol Calculated 56 mg/dL (<100); Potassium 4.5 mmol/L (3.4-5.1); Sodium 138 mmol/L (137-145); Total Protein 6.4 g/dL (6.3-8.2); Triglycerides 66 mg/dL (35-150)
[2023-02-13 14:22] LABS: Prostate Specific Antigen 9.05 ng/mL (0.10-4.00)
== END ==
PROVIDERS: PCP Family Medicine; Referring Provider Family Medicine; Visit Provider Family Medicine
DX: E78.2 Mixed hyperlipidemia (principal); R97.20 Elevated prostate specific antigen [PSA]; I87.8 Other specified disorders of veins
CPT/HCPCS: 36415; 80053; 80061; 84153; 85025

== ENCOUNTER → 2023-03-04 16:22 | Outpatient (CLI) | payer MEDICARE, MEDICAID, SELFPAY ==
[2021-02-07 15:42] VITALS: BMI 23.0
[2023-03-07 08:17] LABS: PSA Free % 23.2 % (.); PSA, Total 8.4 ng/mL (0.0-4.0)
== END ==
PROVIDERS: PCP Family Medicine; Referring Provider Specialist; Visit Provider Specialist
DX: R97.20 Elevated prostate specific antigen [PSA] (principal); N40.1 Benign prostatic hyperplasia with lower urinary tract symptoms; N13.8 Other obstructive and reflux uropathy
CPT/HCPCS: 36415; 84153; 84154

== ENCOUNTER → 2023-03-13 13:22 | Outpatient (CLI) | payer MEDICARE, MEDICAID, SELFPAY ==
[2021-02-07 15:42] VITALS: BMI 23.0
== END ==
PROVIDERS: PCP Family Medicine; Referring Provider Physician Assistant; Visit Provider Physician Assistant
DX: J44.9 Chronic obstructive pulmonary disease, unspecified (principal); Z87.891 Personal history of nicotine dependence
CPT/HCPCS: 94060; 94726; 94729

== ENCOUNTER → 2023-04-29 15:27 | Outpatient (CLI) | payer MEDICARE, MEDICAID, SELFPAY ==
[2021-02-07 15:42] VITALS: BMI 23.0
[2023-05-01 08:19] LABS: PSA Free % 22.8 % (.); PSA, Total 9.6 ng/mL (0.0-4.0)
== END ==
PROVIDERS: PCP Family Medicine; Referring Provider Specialist; Visit Provider Specialist
DX: R97.20 Elevated prostate specific antigen [PSA] (principal)
CPT/HCPCS: 36415; 84153; 84154

== ENCOUNTER → 2023-06-05 15:01 | Outpatient (CLI) | payer MEDICARE, MEDICAID, SELFPAY ==
[2021-02-07 15:42] VITALS: BMI 23.0
[2023-06-10 07:13] LABS: PSA, Total 6.3 ng/mL (0.0-4.0)
== END ==
LOC: LAB 15:03
PROVIDERS: PCP Family Medicine; Referring Provider Specialist; Visit Provider Specialist
DX: R97.20 Elevated prostate specific antigen [PSA] (principal)
CPT/HCPCS: 36415; 84153; 84154

== ENCOUNTER 2023-06-29 11:10 | Emergency (ER) | payer MEDICARE, MEDICAID, SELFPAY ==
[2021-02-07 15:42] VITALS: BMI 23.0
[2023-06-29 11:20] VITALS: BP 135/71; PULSE 71; RESP 20; TEMP 36.8; O2SAT 96; BMI 23.3
--- NOTE | 2023-06-29 11:58 | ED_ITS ---
HPI - URI/Sore Throat <JOHANN Loyd - Last Filed: 06/29/23 12:07> General Chief Complaint: Upper Respiratory Symptoms Stated Complaint: SINUS INFECTION Time Seen by Provider: 06/29/23 11:39 Source: patient Mode of arrival: Ambulatory History of Present Illness HPI Narrative: 72-year-old male, former smoker, presents emergency department with worsening sinus pain since this morning. Patient has had sinus congestion over the last week and saw his family doctor 4 days ago, who recommended he return if symptoms have not improved or sooner if symptoms worsened. Patient has had history of sinus infections. 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 Patient is scheduled to see a professor of industrial technology but is having a hard enough time clearing the sputum from his sinuses that results in uncontrollable coughing. Patient is taking his daily inhalers. Patient did stop taking his ipratropium spray and started retaking his Flonase, as it was making his nose sore. Patient does not take Sudafed, as he says it affects his ability to urinate. Related Data Previous Rx's Medication Instructions Recorded tamsulosin 0.4 mg capsule 0.4 mg PO BEDTIME #90 caps 02/25/23 ipratropium bromide 21 mcg (0.03 2 spray intranasal BID #30 mL 04/15/23 %) nasal spray albuterol sulfate 90 mcg/actuation See Rx Instructions .Route 05/27/23 aerosol inhaler (Ventolin HFA) .COMPLEX #8.5 grams fluticasone furoate 50 1 inh inhalation DAILY #60 ea 06/10/23 mcg-vilanterol 25 mcg/dose inhalation powder (Breo Ellipta) doxycycline hyclate 100 mg capsule 100 mg PO BID Sinusitis 10 days 06/29/23 #20 caps Allergies Allergy/AdvReac Type Severity Reaction Status Date / Time No Known Drug Allergies Allergy Verified 06/29/23 11:20 Review of Systems <JOHANN Loyd - Last Filed: 06/29/23 12:07> Review of Systems Narrative: Narrative: See HPI. GENERAL: Denies chills, fatigue, fever, sweats. HEENT: Denies ear pain, sore throat, difficulty swallowing, dizziness. Endorses right-sided sinus pain. RESPIRATORY: Denies dyspnea, wheezing, sputum. Endorses cough and congestion. CARDIOVASCULAR: Denies chest pain, palpitations, edema. GASTROINTESTINAL: Denies nausea, vomiting, abdominal pain, diarrhea, constipation. : Denies dysuria, frequency, incontinence, hematuria, urinary retention, flank pain. MSK: Denies weakness, joint pain, or bony pain. SKIN: Denies rash, skin lesions, or pruritis. NEUROLOGIC: Denies weakness, dizziness, headache, numbness, confusion. Patient History <JOHANN Loyd - Last Filed: 06/29/23 12:07> Medical History History of urinary retention Incomplete bladder emptying Elevated PSA BPH w urinary obs/LUTS History of UTI Pulmonary asbestosis CVA (cerebral vascular accident) Asbestosis Closed fracture of left hip History of nicotine dependence Allergic rhinitis Varicose veins of both legs with edema Venous stasis Prostate cancer screening Edema Hyperlipidemia Cellulitis of left foot Social History household members: significant other and other Smoking Status: Former smoker alcohol intake: former Smoking Status: Former smoker alcohol intake frequency: 0-2 drinks per day Substance Use Type: marijuana Exam <JOHANN Loyd - Last Filed: 06/29/23 12:07> Narrative Exam Narrative: Exam Narrative: GENERAL: This is a well-nourished, well-developed patient, in no acute distress. HEAD: Atraumatic. Normocephalic. EYES: Pupils equal round and reactive. No scleral icterus, injection or drainage. ENT: Nose without bleeding, purulent drainage. Throat without erythema, tonsillar hypertrophy or exudate. Uvula midline. Airway patent. TMs and canals clear. Right-sided frontal sinus tenderness. NECK: Trachea midline. No JVD or lymphadenopathy. Nontender. CARDIOVASCULAR: Regular rate and rhythm without murmurs, peripheral pulses intact, cap refill <2 sec. RESPIRATORY: Breath sounds equal and clear bilaterally. No wheezes, rales, or rhonchi. Positive cough. No increased respiratory effort. No accessory muscle use. MSK: Moves all extremities. Normal range of motion, no clubbing or edema. Neurovascularly intact. NEURO: A&O x 3. SKIN: Warm, dry, no rashes or lesions noted. Initial Vital Signs Initial Vital Signs: Vital Signs Temperature 98.2 F 06/29/23 11:20 Pulse Rate 71 06/29/23 11:20 Respiratory Rate 20 06/29/23 11:20 Blood Pressure 135/71 06/29/23 11:20 Pulse Oximetry 96 06/29/23 11:20 Oxygen Delivery Method Room Air 06/29/23 11:20 Reviewed <Dionte Sloan DO - Last Filed: 06/29/23 13:20> Initial Vital Signs Initial Vital Signs: Vital Signs Temperature 98.2 F 06/29/23 11:20 Pulse Rate 71 06/29/23 11:20 Respiratory Rate 20 06/29/23 11:20 Blood Pressure 135/71 06/29/23 11:20 Pulse Oximetry 96 06/29/23 11:20 Oxygen Delivery Method Room Air 06/29/23 11:20 Course <JOHANN Loyd - Last Filed: 06/29/23 12:07> Vital Signs Vital signs: Vital Signs - 8 hr 06/29/23 11:20 Temperature 98.2 F Pulse Rate 71 Respiratory Rate 20 Blood Pressure 135/71 Pulse Oximetry 96 Oxygen Delivery Method Room Air <Dionte Sloan DO - Last Filed: 06/29/23 13:20> Vital Signs Vital signs: Vital Signs - 8 hr 06/29/23 11:20 Temperature 98.2 F Pulse Rate 71 Respiratory Rate 20 Blood Pressure 135/71 Pulse Oximetry 96 Oxygen Delivery Method Room Air MDM - URI/Sore Throat <JOHANN Loyd - Last Filed: 06/29/23 12:07> Differential Diagnosis Differential diagnosis: Likely upper respiratory infection, sinusitis and viral infection MDM Narrative Medical decision making narrative: 72-year-old male with worsening sinus pain. Assessment was not overly concerning but is showing symptoms of worsening sinus pain, consistent with sinusitis. Suspect that this may be viral, but with worsening symptoms, have decided to treat with antibiotics as I am not concerned about him developing a resistance at his age. Recommended continued use of prescribed inhalers, maintain adequate hydration and take the antibiotics as prescribed. Discussed plan of care and return precautions patient, who verbalized understanding and was agreeable with course of action. Discharge Plan Departure Patient Disposition: Home Clinical Impression: Sinusitis Qualifiers: Sinusitis location: frontal Chronicity: unspecified Qualified Code(s): J32.1 - Chronic frontal sinusitis Instructions: DI for Sinusitis Activity Restrictions/Additional Instructions: *You have been diagnosed with sinusitis. My assessment was not overly concerning but I do believe you have the beginnings a right-sided sinusitis. We will treat this with antibiotics. Please continue using your Flonase nasal spray and ensure you maintain adequate hydration. I highly recommend you discuss possibly obtaining a ENT referral from your family doctor. For any worsening symptoms, please feel free return to the emergency department or see your family doctor. *What to do: *Please continue to take your regular medications as directed. [ x] New medication prescriptions sent to your pharmacy: [[facility]] [ ] New medication written as a paper prescription [ ] No new medications given *Please follow up with your primary care provider in 2-3 days, call for an appointment. Let them know you were seen in the Emergency Department and that we ask that you be seen in follow up. We will electronically transmit a record of today's note if your PCP is in our system *If you do not have a primary care provider please contact the [facility] Resource line at [phone]. They will ask some questions about your medical history and help get you set up with a doctor in the community. ? Return to ER if you should have any new, worsening or concerning symptoms, such as worsening pain, severe headache, confusion, chest pain, difficulty breathing, fever greater than 101 F, shaking chills, persistent vomiting to the point that you cannot drink fluids, or other new or worsening symptoms. Prescriptions: New doxycycline hyclate 100 mg capsule 100 mg PO BID 10 Days Qty: 20 0RF No Action albuterol sulfate [Ventolin HFA] 90 mcg/actuation HFA aerosol inhaler See Rx Instructions .ROUTE .COMPLEX Qty: 8.5 1RF Dose Instruction: INHALE TWO PUFFS BY MOUTH EVERY SIX HOURS NEEDED FOR SHORTNESS OF BREATH OR WHEEZING Rx Instructions: INHALE TWO PUFFS BY MOUTH EVERY SIX HOURS NEEDED FOR SHORTNESS OF BREATH OR WHEEZING Breo Ellipta 50-25 mcg/dose blister with device 1 inh inhalation DAILY Qty: 60 3RF ipratropium bromide 21 mcg (0.03 %) spray,non-aerosol 2 spray intranasal BID Qty: 30 3RF Rx Instructions: administer into each nostril tamsulosin 0.4 mg capsule 0.4 mg PO BEDTIME Qty: 90 3RF Referrals: Abilio Chase MD [Primary Care Provider] - Stand Alone Forms: Patient Portal/API ED Sign-out <Dionte Sloan, DO - Last Filed: 06/29/23 13:20> Cosign ED Attending Cosignature Attestation: Dr Sloan Co-Sign Statement: I was available for consultation during this francine ent's emergency department visit. This chart is signed by myself for administrative purposes only. I did not have direct contact with this patient during this visit. They were seen independently by the APC.
== END 2023-06-29 12:08 | disposition home or self-care (01) ==
PROVIDERS: Emergency Provider Registered Nurse; PCP Family Medicine
DX: J32.1 Chronic frontal sinusitis (principal); Z87.891 Personal history of nicotine dependence
CPT/HCPCS: 99281; 99283

== ENCOUNTER → 2023-07-03 14:21 | Outpatient (CLI) | payer MEDICARE, MEDICAID, SELFPAY ==
[2021-02-07 15:42] VITALS: BMI 23.0
--- NOTE | 2023-07-03 14:22 | DI.CT.S_ITS ---
PROCEDURE: CT LUNG LOW DOSE SCREENING INDICATIONS: smoking 51 yr history TECHNIQUE: Noncontrast 2.0-2.5 mm thick sections acquired from the pulmonary apices to the posterior costophrenic angles. 7 mm thick axial MIP, and 5 mm coronal and sagittal reformats were then acquired. For radiation dose reduction, the following was used: automated exposure control, adjustment of mA and/or kV according to patient size. COMPARISON: None. FINDINGS: Image quality: Diagnostic. Lower Neck: No enlarged lymph nodes. Thyroid: No thyroid nodules which require sonographic follow up, per consensus guidelines. Axillae: No enlarged lymph nodes. Chest Wall: Unremarkable. Bones: Unremarkable. Lungs and Pleura: No pneumothorax or pleural effusions. No consolidation or suspicious nodules. Heart: Heart size is normal. No pericardial effusion. Thoracic Vessels: The aorta and pulmonary arteries demonstrate normal size. Mediastinum and Bailey: No enlarged lymph nodes. Esophagus: No wall thickening. No hiatal hernia. Upper Abdomen: Calcified splenic granuloma. IMPRESSION: No suspicious pulmonary nodules. LUNG-RADS 1; continued annual screening, if eligible. Clinically Significant Non-pulmonary Findings: None. Dictated by: Kevin Ulloa M.D. on 07/03/2023 at 15:32 Approved by: Kevin Ulloa M.D. on 07/03/2023 at 15:43
== END ==
PROVIDERS: PCP Family Medicine; Referring Provider Physician Assistant; Visit Provider Physician Assistant
DX: Z87.891 Personal history of nicotine dependence (principal); Z12.2 Encounter for screening for malignant neoplasm of respiratory organs
CPT/HCPCS: 71271

== ENCOUNTER → 2023-09-08 15:10 | Outpatient (CLI) | payer MEDICARE, MEDICAID, SELFPAY ==
[2021-02-07 15:42] VITALS: BMI 23.0
[2023-09-11 09:28] LABS: PSA Free % 20.8 % (.); PSA, Total 6.4 ng/mL (0.0-4.0)
== END ==
PROVIDERS: PCP Family Medicine; Referring Provider Specialist; Visit Provider Specialist
DX: R97.20 Elevated prostate specific antigen [PSA] (principal)
CPT/HCPCS: 36415; 84153; 84154

== ENCOUNTER → 2023-09-15 14:17 | Outpatient (CLI) | payer MEDICARE, MEDICAID, SELFPAY ==
[2021-02-07 15:42] VITALS: BMI 23.0
--- NOTE | 2023-09-15 14:19 | DI.RAD.S_ITS ---
PROCEDURE: XR FEMUR LT MIN 2V INDICATIONS: Previous femur fracture with new pain TECHNIQUE: 4 views of the femur were acquired. COMPARISON: [facility] [place], CR, XR PELVIS WITH LATERAL HIP LEFT, 10/24/2020, 14:43. FINDINGS: Bones: Again noted is prior internal fixation of right femoral neck with [address] Hardware positions are not significantly changed from prior study. No gross hardware loosening or failure. No acute femoral fracture or dislocation. No evidence of avascular necrosis of femoral head. No suspicious bony lesions. No suspicious bony lesions. Soft tissues: No suspicious soft tissue calcifications or masses. IMPRESSION: Prior fixation of left femoral neck. No gross hardware loosening or failure. No acute fracture or dislocation. No gross hardware loosening or failure. Dictated by: Enrique Mariano M.D. on 09/15/2023 at 16:38 Approved by: Enrique Mariano M.D. on 09/15/2023 at 16:39
== END ==
PROVIDERS: PCP Family Medicine; Referring Provider Family Medicine; Visit Provider Family Medicine
DX: S72.002S Fracture of unspecified part of neck of left femur, sequela (principal); M89.8X5 Other specified disorders of bone, thigh
CPT/HCPCS: 73552

== ENCOUNTER → 2023-09-16 19:16 | Outpatient (CLI) | payer MEDICARE, MEDICAID, SELFPAY ==
[2021-02-07 15:42] VITALS: BMI 23.0
--- NOTE | 2023-09-16 19:18 | DI.MRI.S_ITS ---
PROCEDURE: MR LUMBAR SPINE WO CON INDICATIONS: left leg radiculopathy, weakness TECHNIQUE: Noncontrast sagittal T1 spin echo and T2 fast echo, sagittal STIR, and T2 fast spin echo through the lumbar spine. In cases with scoliosis, additional coronal T2 fast spin echo may be performed. COMPARISON: [facility] [place], CR, XR PELVIS WITH LATERAL HIP LEFT, 10/24/2020, 14:43. FINDINGS: Image quality: Excellent. Alignment and Curvature: There is 20? left convex scoliosis centered at L2. There is trace L2 on L3 retrolisthesis. Bone Marrow: Marrow is heterogeneous throughout. No acute vertebral body compression fractures. Spinal Cord: Conus medullaris terminates at the L1 level. Visualized cord demonstrates normal signal and size. Paraspinous Soft Tissues: No paravertebral masses. T12-L1: Moderate disc desiccation and height loss. Mild facet ligamentum flavum hypertrophy. No canal stenosis. Mild right foraminal narrowing. No left foraminal stenosis. L1-L2: Mild disc desiccation and height loss. Broad-based disc bulge. No canal stenosis. Mild right neural foraminal narrowing. No left foraminal stenosis. L2-L3: Severe disc desiccation and height loss. Trace retrolisthesis. Moderate canal stenosis. Moderate right and mild left foraminal stenosis. L3-L4: Severe disc desiccation and height loss. Severe facet ligamentum flavum hypertrophy. Severe canal stenosis. Moderate bilateral neural foraminal stenosis. L4-L5: Severe disc desiccation and height loss. Severe facet ligamentum flavum hypertrophy. Severe canal stenosis. Severe bilateral foraminal narrowing with flattening of the exiting nerve roots. L5-S1: Mild disc desiccation and height loss. Severe facet ligamentum flavum hypertrophy. Moderate canal stenosis. No foraminal stenosis. IMPRESSION: 1. Multilevel disc desiccation and height loss, most severe at L2-3, L3-4, and L4-5. 2. Broad-based disc bulges and facet and ligamentum flavum hypertrophy with resultant moderate canal stenosis at L2-3 and L5-S1, and severe canal stenosis at L3-4 and L4-5. 3. Severe bilateral foraminal stenosis with flattening of the exiting nerve roots at L4-5, moderate bilateral foraminal stenosis at L3-4 and moderate right foraminal stenosis at L2-3. Dictated by: Wendy Valencia M.D. on 09/17/2023 at 9:40 Approved by: Wendy Valencia M.D. on 09/17/2023 at 9:54
== END ==
PROVIDERS: PCP Family Medicine; Referring Provider Family Medicine; Visit Provider Family Medicine
DX: M47.816 Spondylosis without myelopathy or radiculopathy, lumbar region (principal); M51.36 Other intervertebral disc degeneration, lumbar region; M47.817 Spondylosis without myelopathy or radiculopathy, lumbosacral region; M48.061 Spinal stenosis, lumbar region without neurogenic claudication; M48.07 Spinal stenosis, lumbosacral region; M54.10 Radiculopathy, site unspecified; R29.898 Other symptoms and signs involving the musculoskeletal system
CPT/HCPCS: 72148

== ENCOUNTER → 2024-04-01 11:56 | Outpatient (CLI) | payer MEDICARE, MEDICAID, SELFPAY ==
[2023-09-26 08:16] VITALS: BMI 23.0
[2024-04-02 11:36] LABS: PSA, Total 7.1 ng/mL (0.0-4.0)
== END ==
PROVIDERS: PCP Family Medicine; Referring Provider Urology; Visit Provider Urology
DX: R97.20 Elevated prostate specific antigen [PSA] (principal); N40.1 Benign prostatic hyperplasia with lower urinary tract symptoms; N13.8 Other obstructive and reflux uropathy
CPT/HCPCS: 36415; 84153; 84154

== ENCOUNTER 2024-08-28 17:44 | Emergency (ER) | payer MEDICARE, MEDICAID, SELFPAY ==
[2023-09-26 08:16] VITALS: BMI 23.0
[2024-08-28] VITALS (7 sets, daily range): BP systolic 110–136; BP diastolic 68–79; PULSE 65–75; RESP 16; TEMP 36.9; O2SAT 94–96; BMI 23.0
[2024-08-28 18:22] LABS: Add Manual Diff / Slide Review NO; Basophils Absolute Auto 0 /uL (0-100); Basophils Percent Auto 0.7 % (0-2); Eosinophils Absolute Auto 100 /uL (0-450); Eosinophils Percent Auto 1.5 % (2-4); Hematocrit 48.1 % (41-53); Hemoglobin 16.2 g/dL (13.5-17.5); Lymphocytes Absolute Auto 1200 /uL (1100-4500); Lymphocytes Percent Auto 21.9 % (25-40); Mean Corpuscular HGB Conc 33.7 % (30-36); Mean Corpuscular Hemoglobin 31.6 PG (26-34); Mean Corpuscular Volume 93.8 fL (80-100); Monocytes Absolute Auto 800 /uL (0-900); Monocytes Percent Auto 15.2 % (3-14); Neutrophils Absolute Auto 3200 /uL (1500-7000); Neutrophils Percent Auto 60.7 % (50-75); Platelet Count 192 X10^3/uL (150-400); Red Blood Cell Count 5.13 X10^6/uL (4.5-5.9); Red Cell Distribution Width 13.3 % (11.6-14.8); White Blood Cell Count 5.3 X10^3/uL (4.5-11.0)
[2024-08-28 18:33] LABS: Alanine Aminotransferase 22 IU/L (<50); Albumin 4.2 g/dL (3.5-5.0); Albumin Globulin Ratio 1.6 (1.0-2.8); Alkaline Phosphatase 86 U/L (38-126); Aspartate Aminotransferase 29 IU/L (17-59); BUN Creatinine Ratio 32.6 (6-22); Bilirubin Total 0.7 mg/dL (0.2-1.3); Blood Urea Nitrogen 31 mg/dL (9-20); Calcium 8.7 mg/dL (8.4-10.2); Carbon Dioxide 18 mmol/L (22-32); Chloride 105 mmol/L (98-107); Estimated Glomerular Filt Rate > 60 mL/min (>60); Globulin 2.7 g/dL (1.7-4.1); Glucose 101 mg/dL (80-110); HEMOLYSIS 19 (0-50); Lipase 87 U/L (23-300); Potassium 3.5 mmol/L (3.4-5.1); Sodium 136 mmol/L (137-145); Total Protein 6.9 g/dL (6.3-8.2)
[2024-08-28 19:02] LABS: Influenza A - CEPHEID Flu A NEGATIVE (NEGATIVE); Influenza B - CEPHEID Flu B NEGATIVE (NEGATIVE); Respiratory Syncytial Virus Negative (Negative)
[2024-08-28 19:14] LABS: COVID-19 CEPHEID 4-PLEX PCR Negative (Negative)
--- NOTE | 2024-08-28 19:32 | ED_ITS ---
HPI - Nausea/Vomiting/Diarrhea General Chief complaint: Nausea/Vomiting/Diarrhea Stated complaint: Poss Stomach Flu Time Seen by Provider: 08/28/24 19:30 Source: patient, RN notes reviewed and old records reviewed Mode of arrival: Ambulatory Limitations: no limitations History of Present Illness HPI Narrative: 74-year-old male history of prior stroke, BPH, COPD presents with complaint of diarrhea for the past several nights. He states it is not really occurring area of the day. He was not had any fevers or chills. He states he threw up a little bit 2 days ago has not had any additional vomiting. No chest pain or shortness of breath. No abdominal back or flank pain. He was noted his urine output has not been quite as much. He attributes this to having frequent diarrhea at nighttime he states it to be a large amount of watery stool. Denies any black or bloody stools. Did try some Pepto-Bismol without improvement. Patient states he has not had any more diarrhea since 10:00 a.m. this morning. He denies any other symptoms. No known drug allergies. Related Data Previous Rx's Medication Instructions Recorded fluticasone furoate 100 1 inh inhalation DAILY #60 ea 08/22/23 mcg-vilanterol 25 mcg/dose inhalation powder (Breo Ellipta) fluticasone propionate 50 1 spray intranasal DAILY #16 grams 09/04/23 mcg/actuation nasal spray,suspension (Flonase Allergy Relief) Ventolin HFA 90 mcg/actuation 2 puff inhalation Q6H PRN 12/31/23 aerosol inhaler (albuterol sulfate) shortness of breath or wheezing #8 grams tamsulosin 0.4 mg capsule 0.4 mg PO ONCE PM #90 caps 03/15/24 Allergies Allergy/AdvReac Type Severity Reaction Status Date / Time No Known Drug Allergies Allergy Verified 05/06/24 12:52 Review of Systems Review of Systems ROS Unobtainable: All systems reviewed & are unremarkable except as noted in HPI and below Patient History Medical History Neuroforaminal stenosis of lumbar spine Spinal stenosis at L4-L5 level History of urinary retention Incomplete bladder emptying Elevated PSA BPH w urinary obs/LUTS History of UTI Pulmonary asbestosis CVA (cerebral vascular accident) Asbestosis Closed fracture of left hip History of nicotine dependence Allergic rhinitis Varicose veins of both legs with edema Venous stasis Prostate cancer screening Edema Hyperlipidemia Cellulitis of left foot Social History household members: significant other and other Smoking Status: Former smoker alcohol intake: former Smoking Status: Former smoker alcohol intake frequency: 0-2 drinks per day Exam Narrative Exam Narrative: GENERAL: Alert and oriented x three, well-appearing elderly male in mild distress HEENT: Head normocephalic, atraumatic, EOMI, pupils reactive, face symmetric, moist mucous membranes NECK: Supple, full range of motion CARDIOVASCULAR: Regular rate and rhythm without murmurs, rubs or gallops. RESPIRATORY: Breath sounds equal bilaterally, no wheezes rales or rhonchi. ABDOMEN: Soft, nontender. Nondistended. Normoactive bowel sounds all 4 quadrants. No guarding or rebound, rigidity, no mass : No CVA tenderness EXTREMITIES: Normal range of motion, no clubbing or edema. Neurovascularly intact NEUROLOGICAL: Cranial nerves II through XII grossly intact. Moving all extremities SKIN: Warm, dry, no petechiae, no rashes or lesions. Initial Vital Signs Initial Vital Signs: Vital Signs Temperature 98.5 F 08/28/24 17:49 Pulse Rate 75 08/28/24 17:49 Respiratory Rate 16 08/28/24 17:49 Blood Pressure 136/71 08/28/24 17:49 Pulse Oximetry 95 08/28/24 17:49 Oxygen Delivery Method Room Air 08/28/24 17:49 Course Orders Ordered: ED Orders 08/28/24 17:56 Stool Culture Stat 08/28/24 18:05 Complete Blood Count AUTO DIFF Stat Comprehensive Metabolic Panel Stat Covid-19 + FLU A/B + RSV - PCR Stat Lipase Stat Vital Signs Vital signs: Vital Signs - 8 hr 08/28/24 17:49 08/28/24 18:27 08/28/24 18:29 Temperature 98.5 F Pulse Rate 75 72 73 Respiratory Rate 16 Blood Pressure 136/71 120/70 Pulse Oximetry 95 96 95 Oxygen Delivery Method Room Air 08/28/24 18:31 08/28/24 19:00 Temperature Pulse Rate 73 65 Respiratory Rate Blood Pressure 126/76 110/68 Pulse Oximetry 95 94 Oxygen Delivery Method MDM - Nausea/Vomiting/Diarrhea Lab Data 08/28/24 18:05 08/28/24 18:05 Labs: Lab Results 08/28/24 Range/Units 18:05 WBC 5.3 (4.5-11.0) X10^3/uL RBC 5.13 (4.5-5.9) X10^6/uL Hgb 16.2 (13.5-17.5) g/dL Hct 48.1 (41-53) % MCV 93.8 (80-100) fL MCH 31.6 (26-34) PG MCHC 33.7 (30-36) % RDW 13.3 (11.6-14.8) % Plt Count 192 (150-400) X10^3/uL Neut % (Auto) 60.7 (50-75) % Lymph % (Auto) 21.9 L (25-40) % [place] % (Auto) 15.2 H (3-14) % Eos % (Auto) 1.5 L (2-4) % Baso % (Auto) 0.7 (0-2) % Neut # (Auto) 3200 (2629-7033) /uL Lymph # (Auto) 1200 (6478-8371) /uL [place] # (Auto) 800 (0-900) /uL Eos # (Auto) 100 (0-450) /uL Baso # (Auto) 0 (0-100) /uL Sodium 136 L (137-145) mmol/L Potassium 3.5 (3.4-5.1) mmol/L Chloride 105 (98-107) mmol/L Carbon Dioxide 18 L (22-32) mmol/L BUN 31 H (9-20) mg/dL Creatinine 0.95 (0.66-1.25) mg/dL Estimated GFR > 60 (>60) mL/min BUN/Creatinine Ratio 32.6 H (6-22) Glucose 101 (80-110) mg/dL Calcium 8.7 (8.4-10.2) mg/dL Total Bilirubin 0.7 (0.2-1.3) mg/dL AST 29 (17-59) IU/L ALT 22 (<50) IU/L Alkaline Phosphatase 86 (38-126) U/L Total Protein 6.9 (6.3-8.2) g/dL Albumin 4.2 (3.5-5.0) g/dL Globulin 2.7 (1.7-4.1) g/dL Albumin/Globulin Ratio 1.6 (1.0-2.8) Lipase 87 (23-300) U/L SARS-CoV-2 (PCR) Negative (Negative) Influenza A (RT-PCR) Flu a negative (NEGATIVE) Influenza B (RT-PCR) Flu b negative (NEGATIVE) RSV (PCR) Negative (Negative) MDM Narrative Medical decision making narrative: Labs show normal white count, hemoglobin and platelets predominance of monocytes with low lymphocytes. Chemistries show normal sodium, CO2 is 18 BUN 31 creatinine 0.95 potassium 3 5 with a chloride of 105 glucose is 101 otherwise normal LFTs lipase is 87. COVID/influenza/RSV is negative. Patient states he was continuing to feel improved. Has not given a urine sample here but he defers. We had also discussed giving some IV fluids. He would like to return home. We discussed CT imaging patient has nontender, well-appearing with normal vitals has not had any diarrhea and has not abdominal pain since 10:00 a.m.. [place] appropriate for discharge home but with return precautions. Discharge Plan Departure Patient Disposition: Home Clinical Impression: Diarrhea Instructions: Diarrhea Activity Restrictions/Additional Instructions: Follow up for recheck if you are having persistent diarrhea. Please return if you have fevers new abdominal back or flank pain, vomiting, black or bloody stools or other new or concerning changes. Prescriptions: No Action fluticasone furoate-vilanterol [Breo Ellipta] 100-25 mcg/dose blister with device 1 inh inhalation DAILY Qty: 60 11RF fluticasone propionate [Flonase Allergy Relief] 50 mcg/actuation spray,suspension 1 spray intranasal DAILY Qty: 16 5RF Rx Instructions: administer into each nostril tamsulosin 0.4 mg capsule 0.4 mg PO ONCE PM Qty: 90 3RF albuterol sulfate [Ventolin HFA] 90 mcg/actuation HFA aerosol inhaler 2 puff inhalation Q6H PRN (Reason: shortness of breath or wheezing) Qty: 8 11RF Referrals: Abilio Chase MD [Primary Care Provider] - Stand Alone Forms: Patient Portal/API/Survey
== END 2024-08-28 20:23 | disposition home or self-care (01) ==
PROVIDERS: Family Medicine; Emergency Provider Emergency Medicine; PCP Family Medicine
DX: R19.7 Diarrhea, unspecified (principal)
CPT/HCPCS: 0241U; 80053; 83690; 85025; 99282; 99283

== ENCOUNTER → 2024-10-05 16:03 | Outpatient (CLI) | payer MEDICARE, MEDICAID, SELFPAY ==
[2023-09-26 08:16] VITALS: BMI 23.0
[2024-10-05 17:55] LABS: Prostate Specific Antigen 7.49 ng/mL (0.10-4.00)
== END ==
PROVIDERS: Urology; PCP Family Medicine; Referring Provider Family Medicine; Visit Provider Family Medicine
DX: R97.20 Elevated prostate specific antigen [PSA] (principal); N40.1 Benign prostatic hyperplasia with lower urinary tract symptoms; N13.8 Other obstructive and reflux uropathy
CPT/HCPCS: 36415; 84153

== ENCOUNTER → 2025-04-08 17:20 | Outpatient (CLI) | payer MEDICARE, MEDICAID, SELFPAY ==
[2023-09-26 08:16] VITALS: BMI 23.0
== END ==
LOC: LAB 17:22
PROVIDERS: Urology; PCP Family Medicine; Referring Provider Family Medicine; Visit Provider Family Medicine
DX: R97.20 Elevated prostate specific antigen [PSA] (principal)
CPT/HCPCS: 36415; 84153; 84154